=== PATIENT | male | born 1970 | race Caucasian/White ===

== ENCOUNTER 2017-03-02 20:52 | Inpatient (IN) ==
[2017-03-02] MEDS ORDERED: Ondansetron 4 MG/2 ML VIAL IVP PRN (22:53)
[2017-03-02] MEDS ORDERED: Naloxone 0.4 MG/ML INJ IVP PRN (22:53)
[2017-03-02] MEDS ORDERED: Acetaminophen 325 MG TABLET PO PRN (22:53)
[2017-03-02] MEDS ORDERED: Lacri-Lube 3.5 GM TUBE BOTH EYES PRN (23:13)
[2017-03-02] MEDS ORDERED: *HR* Heparin 5,000 UNIT/ML VIAL IVP ONE (23:17)
[2017-03-02] MEDS ORDERED: *HR* Heparin 5,000 UNIT/ML VIAL IVP PRN ×2 (23:17)
--- NOTE | 2017-03-02 23:21 | Internal Med History&Physical ---
Date of Encounter: 03/02/17 Time of Encounter: 23:00 Assessment and Plan (1) Respiratory failure Current visit: Yes Status: Acute Patient consumed multiple substances including benzodiazepines, Neurontin and Suboxone. Patient has a history of depression and schizophrenia. According to mother, the patient locks himself up and his room and does not communicate with the rest of the family. Possible intentional overdose in a suicide attempt. Patient was unable to protect his airway and hence, he was intubated and placed on ventilator. Patient will be admitted to ICU as inpatient status. High risk due to respirator failure requiring mechanical ventilation, non-STEMI which requires further evaluation. He is at risk of lethal arrhythmias. Expected to be in the hospital for at least overnights. Expected discharge disposition is to home. Patient's latest ABG reveals a pH of 7.17, PCO2 80 mmHg, PO2 94. After the ABG, his respiratory rate was increased to 20 and his tidal volume was increased to 600 mL. He currently has a minute ventilation of 12 L/m. IBW-80 kg We will continue current ventilator settings (6 ml/kg IBW). Check stat ABG. Adjust ventilator settings based on ABG results. Pulmonology consult for ventilator management. Continue propofol sedation. Intravenous proton pump inhibitor Total critical care time of 45 min Qualifiers: Chronicity: acute Respiratory failure complication: hypoxia and hypercapnia Qualified Code(s): J96.01 - Acute respiratory failure with hypoxia ; J96.02 - Acute respiratory failure with hypercapnia (2) Suicide attempt by multiple drug overdose Current visit: Yes Status: Acute As mentioned earlier, patient has a history of depression. Likely suicidal overdose of medications. Once the patient is extubated, he will require psychiatric evaluation for possible inpatient psychiatric stay. Qualifiers: Encounter type: initial encounter Qualified Code(s): T50.902A - Poisoning by unspecified drugs, medicaments and biological substances, intentional self- harm, initial encounter (3) GUS (acute kidney injury) Current visit: Yes Status: Acute Mild elevation in renal function. Likely due to dehydration. Continue intravenous fluids. Check renal ultrasound (4) Swelling of right hand Current visit: Yes Status: Acute Swelling of the right upper extremity over the past 4 days. Will obtain ultrasound of the right hand. Check blood cultures to evaluate for possible infection. Patient be placed on antibiotics. If the swelling worsens, will consider CT scan of the right hand tomorrow. (5) Encephalopathy, toxic Current visit: Yes Status: Acute Due to polysubstance overdose. (6) NSTEMI (non-ST elevated myocardial infarction) Current visit: Yes Status: Acute Patient has been complaining of chest pain and shortness of breath over the last 3-4 months according to family. He has ST depressions in inferior leads and elevation in troponin. Patient be placed on heparin drip. He will also be given aspirin, statin. Echocardiogram. Cardiology consult. (7) Diabetes mellitus Current visit: Yes Status: Chronic Continue basal insulin. Sliding scale insulin every 4 hours. Qualifiers: Diabetes mellitus type: type 2 Diabetes mellitus complication status: with neurologic complications Diabetes mellitus complication detail: with polyneuropathy Diabetes mellitus shelter insulin use: with extermination inspector use Qualified Code(s): E11.42 - Type 2 diabetes mellitus with diabetic polyneuropathy; Z79.4 - terminal operations manager (current) use of insulin (8) HTN (hypertension) Current visit: Yes Status: Chronic Currently, patient has borderline low blood pressure. Hold antihypertensive medications. Qualifiers: Hypertension type: essential hypertension Qualified Code(s): I10 - Essential (primary) hypertension (9) Obesity Current visit: No Status: Chronic Qualifiers: Obesity type: due to excess calories Obesity severity: unspecified obesity severity Qualified Code(s): E66.09 - Other obesity due to excess calories Internal Medicine - H&P: HPI Chief complaint: Overdose Admitted From: Hospital to Hospital Transfer Plans for Post Hospital Care: Home History of present illness: Mr. Barker is a 46 year old male who has been transferred from [facility] emergency room. Patient was intubated at the emergency room and transferred to ICU in [facility]. Patient is currently intubated on ventilator and sedated. He is unable to provide any history or review of systems. Patient is accompanied by his family who are able to provide information. According to his mother, patient was apparently at his baseline this morning when she returned from [employer]. She had not seen him for about 2-3 hours later. When the family went back to his room, he was found to be on the floor and not responding. Hence, they called EMS and the patient was transported to [place] emergency department. At [place], the patient was intubated for airway protection due to his mental status. The family states that the patient matter taken up to and 15 tablets of Xanax, Suboxone tablets, Neurontin. They stated the patient had a history of intravenous drug use before he went to correction about 10 years ago. However, the patient has been out of correction for the past 5 years and the family states that he has not been using any intravenous drugs since he came out of correction as he has regular checkups with his foreign service officer. They also report that he used to use marijuana and cocaine in the past before going to correction. They state that he has not been using any illicit substances recently. Apparently, the patient has been having swelling of his right hand over the past 4 days. He thought that he had a bite on his hand. They report that his swelling has been getting worse over the last 4 days with the patient has been reluctant to be checked out by the physicians. They also report that he has had chest pains and shortness of breath over the past 3-4 months. The patient does have a history of diabetes mellitus and uses Lantus at bedtime. The family states that the patient has not been having any fever or chills, cough, wheezing or sputum production recently. Past Med Surg Social Fam HX - Past Medical History Source: old records reviewed, obtained from family Medical history: diabetes, hyperlipidemia, hypertension, kidney stones, other Psychiatric history: depression, schizophrenia - Past Surgical History Surgical History: non-contributory - Social History Smoking Status: Current every day smoker Packs per day: 4 Smokeless Tobacco Status: No Alcohol use: none Drug use: none Current living situation: Home, With Family Activity Level: Independent ambulation Recent Out of Country Travel Within the Last 8 Weeks: No Exposure or Possible Exposure to Illness During Travel: No - Additional Family History Additional family history: Reviewed; not pertinent Internal Medicine - H&P: Meds Amitriptyline [Elavil] 50 mg PO DAILY 04/18/15 [History] Amlodipine Besylate [Norvasc] 10 mg PO DAILY 04/18/15 [History] Benazepril HCl [Lotensin] 20 mg PO DAILY 04/18/15 [History] Gabapentin [Neurontin] 800 mg PO TID 04/18/15 [History] HYDROcodone/Acet 5/325 mg [[place] 5-325 mg] 1 tab PO Q6HR 04/18/15 [History] HYDROcodone/Acet 5/325 mg [[place] 5-325 mg] 2 tab PO Q4H PRN #20 tablet 04/18/15 [Rx] Hydrochlorothiazide 25 mg PO DAILY 04/18/15 [History] Ketorolac [Toradol] 10 mg PO Q6HR 04/18/15 [History] Lamotrigine [Lamictal] 150 tab PO DAILY 04/18/15 [History] Metformin [Glucophage] 500 mg PO BID 04/18/15 [History] Metoprolol [Lopressor] 25 mg PO BID 04/18/15 [History] Oxybutynin [Ditropan] 5 mg PO TID PRN #30 tablet 04/18/15 [Rx] RisperiDONE [RisperDAL] 3 mg PO BID 04/18/15 [History] Tamsulosin [Flomax] 0.4 mg PO DAILY 04/18/15 [History] Allergies No Known Allergies Allergy (Verified 04/18/15 10:56) ROS unobtainable: due to endotracheal tube All Systems PM: A 10-system review of systems was performed and is negative for pertinent findings except as documented above in the HPI. - Constitutional Vitals: Temp Pulse Resp BP Pulse Ox 99.3 F 82 20 90/60 96 03/02/17 22:59 03/02/17 22:59 03/02/17 22:59 03/02/17 22:59 03/02/17 22:59 Exam: Gen.: Lying in bed. Intubated on ventilator. Sedated. Eyes: Pupils equal, round and reactive to light. Extraocular muscles intact. ENT: Moist mucous membranes. No oropharyngeal erythema or discharge. Endotracheal tube at 25 cm. 8 mm ET tube. Orogastric tube present. Chest: Bilateral diffuse wheezing and rhonchi present. CVS: First and second heart sounds present. No murmurs, rubs or gallops. Distant heart sounds. Abdomen: Soft, nontender, obese. Bowel sounds present. Skin: No decubitus ulcers appreciated. SALES SUPPORT ASSOCIATE: Unable to assess due to being on the ventilator and being sedated. Psychiatric: Intubated and sedated with propofol on a ventilator. Lymphatic system: No lymphadenopathy appreciated Musculoskeletal: Edema and erythema over the right hand. Internal Med - H&P Results - ABG Interpretation Interpretation: ABG interpreted by me Interpretation: abnormal, respiratory acidosis - EKG Data -: EKG Interpreted by Myself EKG shows normal: sinus rhythm, ST-T waves (ST depressions in leads 2, 3 and aVF ) Rate: normal - EKG Data Prior EKG available for review: no - Diagnostic Studies Chest x-ray Status: image reviewed by me (ET tube in satisfactory position; Low lung volumes ; Probable left airspace disease)
[2017-03-02] MEDS ORDERED: D5% in Water 1,000 ML IVC PRN (23:30)
[2017-03-02] MEDS ORDERED: Dextrose Gel 15 GM PO PRN ×2 (23:30)
[2017-03-02] MEDS ORDERED: *HR* Dextrose 50 % in Water (Syg) 50 ML SYRINGE IVP PRN (23:30)
[2017-03-02] MEDS ORDERED: Aspirin 325 MG TABLET PO ONE (23:34)
[2017-03-02] MEDS: 0.9 % Sodium Chloride 1,000 ML IVC SCH (23:51)
[2017-03-02] MEDS: Ipratropium/Albuterol Neb 3 ML IH SCH (23:54)
[2017-03-02] MEDS: Insulin LISPRO 300 UNITS/3 ML VIAL SQ SCH (23:58)
[2017-03-02] MEDS: Lacri-Lube 3.5 GM TUBE BOTH EYES SCH (23:58)
[2017-03-02 23:59] LABS: ABG Base Excess 1.4 mEq/L (-2.0 to 3.0); ABG HCO3 31.1 mEQ/L (21-27); ABG Oxygen Saturation 78 % (95-98); ABG PH 7.22 pH Units (7.32-7.45); ABG PO2 51 mmHg (85-104); ABG TCO2 33.4 mEq/L (20-26); Blood Gas FiO2 100 %
[2017-03-03] LABS: ABG PCO2 76 mmHg (35-45)
[2017-03-03 00:13] LABS: Hematocrit 36.3 % (37.5-50.1); Hemoglobin 11.1 g/dL (12.9-16.9); Mean Corpuscular HGB Conc 30.6 g/dL (31.6-35.5); Mean Corpuscular Hemoglobin 20.7 pg (28.0-33.3); Mean Corpuscular Volume 67.9 fL (83.0-100.0); Platelet Count 199 K/mcL (140-400); Red Blood Count 5.35 M/mcL (4.19-5.50); Red Cell Distribution Width 17.3 % (11.5-14.5)
[2017-03-03] MEDS: Ampicillin/Sulbactam 1,500 MG in 0.9 % Sodium Chloride Mini Bag 100 ML IVPB SCH ×4 (00:16→18:33)
[2017-03-03 00:19] LABS: INR 1.2; Prothrombin Time 13.1 Seconds (9.4-12.1)
[2017-03-03 00:22] LABS: Activated Partial Thrombo Time 29.8 Seconds (26.0-36.0)
[2017-03-03 00:25] LABS: Hemoglobin A1C 8.7 %
[2017-03-03 00:27] LABS: ABG Base Excess 3.5 mEq/L (-2.0 to 3.0); ABG HCO3 30.6 mEQ/L (21-27); ABG Oxygen Saturation 96 % (95-98); ABG PCO2 58 mmHg (35-45); ABG PH 7.33 pH Units (7.32-7.45); ABG PO2 84 mmHg (85-104); ABG TCO2 32.4 mEq/L (20-26)
[2017-03-03 00:28] LABS: Blood Gas FiO2 100 %
[2017-03-03] MEDS: Heparin 25,000 UNIT/500 ML D5W 25,000 UNIT/500 ML MLS IVC SCH ×2 (00:48→13:03)
[2017-03-03] MEDS: Ipratropium/Albuterol Neb 3 ML IH SCH ×6 (04:04→23:29)
[2017-03-03] MEDS: Lacri-Lube 3.5 GM TUBE BOTH EYES SCH ×5 (04:50→21:25)
[2017-03-03 05:24] LABS: ABG Base Excess 5.9 mEq/L (-2.0 to 3.0); ABG HCO3 32.8 mEQ/L (21-27); ABG Oxygen Saturation 93 % (95-98); ABG PCO2 58 mmHg (35-45); ABG PH 7.36 pH Units (7.32-7.45); ABG PO2 68 mmHg (85-104); ABG TCO2 34.6 mEq/L (20-26); Blood Gas FiO2 80 %
[2017-03-03] MEDS: Insulin LISPRO 300 UNITS/3 ML VIAL SQ SCH ×3 (06:08→18:38)
[2017-03-03] MEDS: Aspirin Enteric Coated 81 MG Tablet PO SCH (07:39)
[2017-03-03 07:57] LABS: Basophils % 0.1 %; Eosinophils % 0.2 %; Hematocrit 35.7 % (37.5-50.1); Hemoglobin 11.4 g/dL (12.9-16.9); Immature Granulocytes % 0.7 % (0-4); Lymphocytes % 23.1 %; Mean Corpuscular HGB Conc 31.9 g/dL (31.6-35.5); Mean Corpuscular Hemoglobin 21.3 pg (28.0-33.3); Mean Corpuscular Volume 66.9 fL (83.0-100.0); Mean Platelet Volume 10.1 fL (9.4-12.4); Monocytes # 0.8 K/mcL (0.0-1.3); Monocytes % 9.4 %; Neutrophils # 5.9 K/mcL (1.6-8.9); Platelet Count 194 K/mcL (140-400); Red Blood Count 5.34 M/mcL (4.19-5.50); Red Cell Distribution Width 18.1 % (11.5-14.5); Segmented Neutrophils % 66.5 %
[2017-03-03 07:59] LABS: Alanine Aminotransferase 33 Units/L (0-55); Albumin 3.2 g/dL (3.5-5.0); Alkaline Phosphatase 84 Units/L (38-126); Aspartate Amino Transferase 37 Units/L (5-34); BUN/Creatinine Ratio 15 (6-26); Bilirubin,Total 0.4 mg/dL (0.2-1.2); Blood Urea Nitrogen 13 mg/dL (8-26); Calcium 8.7 mg/dL (8.6-10.8); Carbon Dioxide 27 mEq/L (19-29); Chloride 100 mEq/L (98-109); Globulin 3.3 g/dL (2.4-3.5); Glucose 136 mg/dL (70-99); Osmolality,Calculated 286 (280-300); Potassium 3.9 mEq/L (3.5-4.5); Sodium 137 mEq/L (136-145); Total Protein 6.5 g/dL (6.0-8.3); eGFR For African Americans > 60 (> 60); eGFR For Non-African Americans > 60 (> 60)
[2017-03-03] MEDS: Chlorhexidine Rinse 15 ML MOUTHWASH MM SCH ×2 (08:19→21:25)
[2017-03-03] MEDS: Pantoprazole 40 MG VIAL IVPB SCH (08:19)
[2017-03-03] MEDS: 0.9 % Sodium Chloride 1,000 ML IVC SCH ×2 (08:19→18:32)
[2017-03-03 08:29] LABS: Anisocytosis 1+ (Not Present); Microcytosis Present (Not Present); Platelet Estimate Normal (Normal)
[2017-03-03] MEDS: FentaNYL (PF) 1,000 MCG in 0.9 % Sodium Chloride 80 ML IVC SCH ×3 (08:57→21:28)
--- NOTE | 2017-03-03 10:15 | Cardiology Consult Note ---
Date of Encounter: 03/03/17 Time of Encounter: 10:15 Assessment and Plan (1) Suicide attempt by multiple drug overdose Current Visit: Yes Status: Acute Per Cardiology: Previous records reviewed: "Patient consumed multiple substances including benzodiazepines, Neurontin and Suboxone. Patient has a history of depression and schizophrenia. According to mother, the patient locks himself up and his room and does not communicate with the rest of the family. Possible intentional overdose in a suicide attempt. Patient was unable to protect his airway and hence, he was intubated and placed on ventilator". Management per primary service. Qualifiers: Encounter type: initial encounter Qualified Code(s): T50.902A - Poisoning by unspecified drugs, medicaments and biological substances, intentional self- harm, initial encounter (2) NSTEMI (non-ST elevated myocardial infarction) Current Visit: Yes Status: Acute Per Cardiology: Peak troponin 2.97. Echo showed EF 60%, normal diastolic fxn, normal RV structure and fxn, no significant valvular dysfxn, NSWMA. On asa, Hep gtt, plavix, statin. Plavix loaded by primary service. Will add BB-- HR 100's and SBP 120's to 130's. Consider further ischemic eval. once recovers from acute event if deemed clinically appropriate. Discussed and reviewed with Dr. Abrams. Cardiac rehab consult not warranted at this time. (3) Respiratory failure Current Visit: Yes Status: Acute Per Cardiology: Intubated. Management per pulm. Qualifiers: Chronicity: acute Respiratory failure complication: hypoxia and hypercapnia Qualified Code(s): J96.01 - Acute respiratory failure with hypoxia ; J96.02 - Acute respiratory failure with hypercapnia Discussion w patient/family: Thank you for involving us in the care of your patient. Please call with any questions. History of Present Illness Consult date: 03/03/17 Requesting physician: Kendall To Consult reason: Elevated Trop in setting of OD History of present illness: Mr. Barker is a 46 year old male with a relevant past medical history according to records of hypertension, hyperlipidemia, diabetes mellitus type 2, nicotine abuse, schizophrenia, and depression. Cardiology consult for elevated troponin in setting of suicide attempt with overdose. Patient currently intubated and sedated with no family currently present at bedside. Unable to obtain history of present illness. Past Med Surg Social Fam HX - Past Medical History Source: unable to obtain, old records reviewed Medical history: diabetes, hyperlipidemia, hypertension, kidney stones, other Psychiatric history: depression, schizophrenia - Past Surgical History Surgical History: non-contributory - Social History Smoking Status: Current every day smoker Packs per day: 4 Smokeless Tobacco Status: No Alcohol use: none Drug use: none - Family History Father Living Status: Cause of : [place] Hx Family Cardiac Disorders: Yes Medications and Allergies Amitriptyline [Elavil] 50 mg PO DAILY 04/18/15 [History] Amlodipine Besylate [Norvasc] 10 mg PO DAILY 04/18/15 [History] Benazepril HCl [Lotensin] 20 mg PO DAILY 04/18/15 [History] Gabapentin [Neurontin] 800 mg PO TID 04/18/15 [History] HYDROcodone/Acet 5/325 mg [[place] 5-325 mg] 1 tab PO Q6HR 04/18/15 [History] HYDROcodone/Acet 5/325 mg [[place] 5-325 mg] 2 tab PO Q4H PRN #20 tablet 04/18/15 [Rx] Hydrochlorothiazide 25 mg PO DAILY 04/18/15 [History] Ketorolac [Toradol] 10 mg PO Q6HR 04/18/15 [History] Lamotrigine [Lamictal] 150 tab PO DAILY 04/18/15 [History] Metformin [Glucophage] 500 mg PO BID 04/18/15 [History] Metoprolol [Lopressor] 25 mg PO BID 04/18/15 [History] Oxybutynin [Ditropan] 5 mg PO TID PRN #30 tablet 04/18/15 [Rx] RisperiDONE [RisperDAL] 3 mg PO BID 04/18/15 [History] Tamsulosin [Flomax] 0.4 mg PO DAILY 04/18/15 [History] Allergies No Known Allergies Allergy (Verified 04/18/15 10:56) ROS unobtainable: due to endotracheal tube, due to mental status, other ( sedated on fentanyl and propofol, intubated, no family at bedside) All Systems Review: A 10-system review of systems was performed and is negative for pertinent findings except as documented above in the HPI. - Cardiovascular Cardiovascular: as per HPI Physical Examination Vital Signs, Last 4 Hours Temp Pulse Resp BP Pulse Ox 03/03/17 10:00 98 20 120/65 93 03/03/17 09:05 21 121/73 92 03/03/17 09:00 101 20 121/73 92 03/03/17 08:00 94 23 120/67 89 03/03/17 07:55 99.9 F H 03/03/17 07:10 20 108/64 93 03/03/17 07:00 94 20 108/64 93 03/03/17 06:29 20 112/69 94 HEENT: Atraumatic, Normocephaly Cardiac: Reg Rate and Rhythm, Normal S1 and S2, No Murmur Lungs: Normal Breath Sounds, No Wheeze, Rales, Rhonchi Neuro: Other (Sedated) Abdomen: Soft Skin: No rashes noted on visualized skin Extremities: No Edema, Normal Pulses Results 03/03/17 07:37 03/03/17 07:37 Lab Results Laboratory Tests 03/02/17 03/03/17 03/03/17 19:50 00:09 00:09 INR 1.2 Troponin I 0.11 H* 0.65 H* 03/03/17 07:37 INR Troponin I 2.97 H* ITS Impressions Chest X-Ray 03/02/17 22:55 IMPRESSION: 1. Endotracheal tube in good position. 2. Increased perihilar opacities and vascular congestion suggestive of pulmonary edema. 3. Persistent retrocardiac opacity, which may represent atelectasis or consolidation with possible small effusion. D/ / 03/03/2017 07:22:32 Jonas Riddle MD / taylor Interpreting Provider: Jonas Riddle MD Intake & Output 02/28/17 03/01/17 03/02/17 03/03/17 23:59 23:59 23:59 23:59 Intake Total 0 / 0 1656 / 1656 Output Total 150 / 150 1025 / 1025 Balance -150 / -150 631 / 631 Weight 144.1 kg 142.8 kg Active Medications Acetaminophen (Tylenol) 650 mg PO Q6HR PRN PRN Reason: fever GREATER than 101.2 F Stop: 09/01/17 22:54 Albuterol/Ipratropium (Duoneb) 3 ml IH [id number] WAQAR PRN Reason: Protocol Stop: 09/02/17 00:01 Last Admin: 03/03/17 07:09 Dose: 3 ml Artificial Tears (Lacri-Lube) 1 appl BOTH EYES Q4HR WAQAR PRN Reason: Protocol Stop: 09/02/17 00:01 Last Admin: 03/03/17 08:19 Dose: 1 appl Artificial Tears (Lacri-Lube) 1 appl BOTH EYES Q2HR PRN; Protocol PRN Reason: Dry Eyes Stop: 09/01/17 23:14 Aspirin (Aspirin Ec) 81 mg PO DAILY WAQAR Stop: 09/02/17 09:01 Last Admin: 03/03/17 07:39 Dose: Not Given Atorvastatin Calcium (Lipitor) 80 mg PO HS WAQAR Stop: 09/01/17 23:46 Last Admin: 03/03/17 01:09 Dose: 80 mg Chlorhexidine Gluconate (Chlorhexidine Rinse) 15 ml MM BID WAQAR Stop: 09/02/17 09:01 Last Admin: 03/03/17 08:19 Dose: 15 ml Clopidogrel Bisulfate (Plavix) 75 mg PO DAILY WAQAR Stop: 09/02/17 09:01 Last Admin: 03/03/17 08:19 Dose: 75 mg Dextrose/Water (Dextrose 50% (Syg)) 25 ml IVP AD PRN PRN Reason: Hypoglycemia Stop: 09/01/17 23:31 Glucagon (Glucagen) 1 mg IM ONCE PRN PRN Reason: Hypoglycemia Stop: 09/01/17 23:31 Glucose (Gluctose) 15 gm PO ONCE PRN PRN Reason: Hypoglycemia Stop: 09/01/17 23:31 Glucose (Gluctose) 30 gm PO ONCE PRN PRN Reason: Hypoglycemia Stop: 09/01/17 23:31 Heparin Sodium (Porcine) (Heparin) 4,000 unit IVP Q6HR PRN PRN Reason: SEE COMMENTS Stop: 09/01/17 23:18 Heparin Sodium (Porcine) (Heparin) 2,000 unit IVP Q6H PRN PRN Reason: SEE COMMENTS Stop: 09/01/17 23:18 Sodium Chloride (0.9 % Sodium Chloride) 1,000 mls @ 100 mls/hr IVC .Q10H WAQAR Stop: 09/01/17 23:01 Last Admin: 03/03/17 08:19 Dose: 100 mls/hr Propofol (Diprivan) 1,000 mg in 100 mls @ 0 mls/hr IVC .Q0M WAQAR; Per Protocol PRN Reason: Protocol Stop: 09/01/17 23:16 Last Admin: 03/03/17 08:56 Dose: 60 mcg/kg/hr, 0.865 mls/hr Heparin Sodium/Dextrose (Heparin 25,000 Unit/500 Ml D5w) 25,000 unit in 500 mls @ 34.584 mls/hr IVC .[id number] WAQAR; 12 UNIT/KG/HR PRN Reason: Protocol Stop: 09/01/17 23:31 Last Titration: 03/03/17 08:45 Dose: 15.44 unit/kg/hr, 44.5 mls/hr Dextrose (Dextrose 5%) 1,000 mls @ 100 mls/hr IVC .Q10H PRN PRN Reason: HYPOGLYCEMIA Stop: 09/01/17 23:31 Ampicillin Sodium/Sulbactam Sodium 1,500 mg/ Sodium Chloride 100 mls @ 200 mls/ hr IVPB Q6HR WAQAR Stop: 09/02/17 00:01 Last Infusion: 03/03/17 06:39 Dose: Infused Fentanyl Citrate 1,000 mcg/ (Sodium Chloride) 100 mls @ 5 mls/hr IVC CONT WAQAR; 50 MCG/HR PRN Reason: Protocol Stop: 09/02/17 08:16 Last Admin: 03/03/17 08:57 Dose: 50 mcg/hr, 5 mls/hr Insulin Human Lispro (Humalog) 0 units SQ Q6HR WAQAR PRN Reason: Protocol Stop: 09/02/17 00:01 Last Admin: 03/03/17 06:08 Dose: 4 units Naloxone HCl (Narcan) 0.4 mg IVP Q2MIN PRN PRN Reason: Opioid Reversal Stop: 09/01/17 22:54 Ondansetron HCl (Zofran) 4 mg IVP Q6HR PRN; Protocol PRN Reason: Nausea And Vomiting Stop: 09/01/17 22:54 Pantoprazole Sodium (Protonix) 40 mg IVPB DAILY [facility] Stop: 09/02/17 09:01 Last Admin: 03/03/17 08:19 Dose: 40 mg - Imaging and Cardiology Chest Xray: report reviewed Echo: report reviewed - EKG Interpretation EKG results cardiology: personally reviewed, normal ECG, sinus rhythm, other ( ST 100's on tele) Consult Discharge Plan - Plan Referrals: Molina Dewey DO [Primary Care Provider] -
[2017-03-03] MEDS ORDERED: Perflutren Lipid Microsphere 1.3 ML in 0.9 % Sodium Chloride 8.7 ML IVP ONE (10:44)
--- NOTE | 2017-03-03 14:03 | Pulmonology Progress Note ---
Date of Encounter: 03/03/17 Time of Encounter: 08:45 Assessment and Plan (1) Overdose Current Visit: Yes Status: Acute Neuro: Acute overdose with unknown SI. Associated encephalopathy. Highly agitated and requiring fairly large doses of fentanyl and propofol for sedation. Likely being comfort care by history of schizophrenia. Continue with sedation and planned wakeup is able tomorrow. Agitation could [place] extubation. Cardiovascular: NSTEMI. Continue antiplatelet, anticoagulation, and rate control. Cardiology has been consult. Pulmonary: Acute respiratory failure most likely due to acuity of agitation. Suboptimal chest x-ray difficult to interpret for airspace abnormalities. However, there are no indicators of pneumonia (i.e. leukocytosis, fever, purulent sputum). Patient has shown some ventilator difficulty but this may be owing to parenchymal derecruitment during periods agitation. Nephro: Discordant data between blood gas and serum bicarbonate. Possible that ABG data was skewed by rapid changes in CO2 due to variations in rest for status with anxiety/agitation. No AK. GI: No significant LAE abnormalities. Will not attempt enteral feeds agitation. ID: No evidence of acute infection. HO: Slight anemia. No indication for transfusion. Endocrine: Hyperglycemia. If blood glucose rises any further, plan to initiate sliding scale. MSK: Patient currently in 4. restraints. No other acute issues. Disposition: Remain in ICU. Critical care time 45 minutes. Qualifiers: Encounter type: initial encounter Injury intent: intentional self-harm Qualified Code(s): T50.902A - Poisoning by unspecified drugs, medicaments and biological substances, intentional self-harm, initial encounter (2) Respiratory failure Current Visit: Yes Status: Acute Qualifiers: Chronicity: acute Respiratory failure complication: hypoxia and hypercapnia Qualified Code(s): J96.01 - Acute respiratory failure with hypoxia ; J96.02 - Acute respiratory failure with hypercapnia (3) Encephalopathy, toxic Current Visit: Yes Status: Acute (4) NSTEMI (non-ST elevated myocardial infarction) Current Visit: Yes Status: Acute Subjective Principal diagnosis: Overdose Interval history: 46-year-old male admitted last night for overdose of multiple substances. Possible suicidal ideation but this remains unclear. Patient was intubated at admission and has required significant doses of sedation. Was also noted to have elevated troponin during his acute event. Since admission patient has shown no changes mental status and has been unable to convey any complaint. Objective PUL Vital signs: Last Vital Signs Temp 99.3 F 03/03/17 11:48 Pulse 99 03/03/17 13:00 Resp 20 03/03/17 13:02 BP 117/68 03/03/17 13:02 Pulse Ox 94 03/03/17 13:02 General appearance: agitated Neck: supple Auscultation: bilateral: rhonchi Cardiovascular: other (Tachycardia with regular rhythm) Gastrointestinal: soft, non-distended Integumentary: normal Extremities: no cyanosis, no edema, no clubbing unable to assess due to mental status anxious Ventilator Settings Ventilator Settings: Ventilator Settings, Last 8 Hours Ventilator Mode VC+ Ventilator Mode VC+ Ventilator Mode VC+ Ventilator Mode VC+ Ventilator Mode VC+ Ventilator Mode VC+ Ventilator Mode VC+ Ventilator Mode VC+ Ventilator Mode VC+ Ventilator Mode VC+ Ventilator Mode VC+ Ventilator Mode VC+ Ventilator Tidal Volume 600 Setting Ventilator Tidal Volume 600 Setting Ventilator Tidal Volume 600 Setting Ventilator Tidal Volume 600 Setting Ventilator Tidal Volume 600 Setting Ventilator Tidal Volume 600 Setting Ventilator Tidal Volume 600 Setting Ventilator Tidal Volume 600 Setting Ventilator Tidal Volume 600 Setting Ventilator Tidal Volume 600 Setting Ventilator Tidal Volume 600 Setting Ventilator Tidal Volume 600 Setting Ventilator Tidal Volume 600 Setting Ventilator Respiratory Rate 20 Setting Ventilator Respiratory Rate 20 Setting Ventilator Respiratory Rate 20 Setting Ventilator Respiratory Rate 20 Setting Ventilator Respiratory Rate 20 Setting Ventilator Respiratory Rate 20 Setting Ventilator Respiratory Rate 20 Setting Ventilator Respiratory Rate 20 Setting Ventilator Respiratory Rate 20 Setting Ventilator Respiratory Rate 20 Setting Ventilator Respiratory Rate 20 Setting Ventilator Respiratory Rate 20 Setting Ventilator Respiratory Rate 20 Setting Actual Respiratory Rate 20 Actual Respiratory Rate 20 Actual Respiratory Rate 23 Actual Respiratory Rate 20 Actual Respiratory Rate 21 Actual Respiratory Rate 20 Actual Respiratory Rate 20 Actual Respiratory Rate 20 Actual Respiratory Rate 23 Actual Respiratory Rate 21 Actual Respiratory Rate 20 Actual Respiratory Rate 20 Actual Respiratory Rate 20 Positive End Expiratory 10 Pressure Positive End Expiratory 10 Pressure Positive End Expiratory 10 Pressure Positive End Expiratory 10 Pressure Positive End Expiratory 10 Pressure Positive End Expiratory 10 Pressure Positive End Expiratory 10 Pressure Positive End Expiratory 10 Pressure Positive End Expiratory 10 Pressure Positive End Expiratory 10 Pressure Positive End Expiratory 5 Pressure Positive End Expiratory 5 Pressure Positive End Expiratory 5 Pressure Peak Inspiratory Airway 24 Pressure Peak Inspiratory Airway 27 Pressure Peak Inspiratory Airway 16 Pressure Peak Inspiratory Airway 29 Pressure Peak Inspiratory Airway 29 Pressure Peak Inspiratory Airway 30 Pressure Peak Inspiratory Airway 24 Pressure Peak Inspiratory Airway 26 Pressure Peak Inspiratory Airway 27 Pressure Peak Inspiratory Airway 27 Pressure Peak Inspiratory Airway 31 Pressure Peak Inspiratory Airway 29 Pressure Peak Inspiratory Airway 29 Pressure Results - Laboratory Findings CBC and BMP: 03/03/17 07:37 03/03/17 07:37 ABG ABG pH 7.36 pH Units (7.32-7.45) 03/03/17 05:04 ABG pCO2 58 mmHg (35-45) H 03/03/17 05:04 ABG pO2 68 mmHg (85-104) L 03/03/17 05:04 ABG O2 Saturation 93 % (95-98) L 03/03/17 05:04 PT/INR, D-dimer PT 13.1 Seconds (9.4-12.1) H 03/03/17 00:09 Abnormal lab findings: Abnormal lab results Hgb 11.4 g/dL (12.9-16.9) L 03/03/17 07:37 Hct 35.7 % (37.5-50.1) L 03/03/17 07:37 MCV 66.9 fL (83.0-100.0) L 03/03/17 07:37 MCH 21.3 pg (28.0-33.3) L 03/03/17 07:37 RDW 18.1 % (11.5-14.5) H 03/03/17 07:37 Anisocytosis 1+ (Not Present) A 03/03/17 07:37 Microcytosis Present (Not Present) A 03/03/17 07:37 PT 13.1 Seconds (9.4-12.1) H 03/03/17 00:09 ABG pCO2 58 mmHg (35-45) H 03/03/17 05:04 ABG pO2 68 mmHg (85-104) L 03/03/17 05:04 ABG HCO3 32.8 mEQ/L (21-27) H 03/03/17 05:04 ABG Total CO2 34.6 mEq/L (20-26) H 03/03/17 05:04 ABG O2 Saturation 93 % (95-98) L 03/03/17 05:04 ABG Base Excess 5.9 mEq/L (-2.0 to 3.0) H 03/03/17 05:04 Glucose 136 mg/dL (70-99) H 03/03/17 07:37 POC Glucose 176 (58-89) H 03/03/17 11:16 Hemoglobin A1c 8.7 % (-5.6) H 03/03/17 00:09 AST 37 Units/L (5-34) H 03/03/17 07:37 Troponin I 2.97 ng/mL (0-0.03) H* 03/03/17 07:37 Albumin 3.2 g/dL (3.5-5.0) L 03/03/17 07:37 Albumin/Globulin Ratio 1.0 (1.1-2.2) L 03/03/17 07:37 - Microbiology Findings Microbiology Findings: Microbiology, Last 48 Hours 03/02/17 00:31 Legionella Antigen - Final Urine,Catheterized Streptococcus pneumoniae Antigen (M - Final - Clinical Findings Intake & Output: Intake & Output 03/02/17 03/03/17 03/03/17 23:59 07:59 15:59 Intake Total 0 / 0 300 / 300 1943 / 1943 Output Total 150 / 150 1025 / 1025 800 / 800 Balance -150 / -150 -725 / -725 1143 / 1143 Weight 144.1 kg 144.1 kg 142.8 kg Consult Discharge Plan - Plan Referrals: Molina Dewey DO [Primary Care Provider] -
--- NOTE | 2017-03-03 14:51 | Electrocardiograph Report ---
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
[2017-03-04] MEDS: Heparin 25,000 UNIT/500 ML D5W 25,000 UNIT/500 ML MLS IVC SCH (00:01)
[2017-03-04] MEDS: Lacri-Lube 3.5 GM TUBE BOTH EYES SCH ×7 (00:43→23:45)
[2017-03-04] MEDS: Ampicillin/Sulbactam 1,500 MG in 0.9 % Sodium Chloride Mini Bag 100 ML IVPB SCH ×2 (00:44→05:05)
[2017-03-04] MEDS: Insulin LISPRO 300 UNITS/3 ML VIAL SQ SCH ×5 (00:44→23:48)
[2017-03-04] MEDS: FentaNYL (PF) 1,000 MCG in 0.9 % Sodium Chloride 80 ML IVC SCH ×5 (01:15→19:54)
[2017-03-04] MEDS: Ipratropium/Albuterol Neb 3 ML IH SCH ×6 (03:45→23:55)
[2017-03-04] MEDS: 0.9 % Sodium Chloride 1,000 ML IVC SCH ×2 (04:30→15:01)
[2017-03-04 05:06] LABS: ABG Base Excess 8.1 mEq/L (-2.0 to 3.0); ABG HCO3 34.9 mEQ/L (21-27); ABG Oxygen Saturation 91 % (95-98); ABG PCO2 59 mmHg (35-45); ABG PH 7.38 pH Units (7.32-7.45); ABG PO2 63 mmHg (85-104); ABG TCO2 36.7 mEq/L (20-26); Blood Gas FiO2 60 %
[2017-03-04 06:54] LABS: Activated Partial Thrombo Time 112.5 Seconds (26.0-36.0)
[2017-03-04 07:02] LABS: Basophils % 0.3 %; Eosinophils # 0.1 K/mcL (0.0-0.6); Hematocrit 35.1 % (37.5-50.1); Hemoglobin 10.9 g/dL (12.9-16.9); Immature Granulocytes % 0.5 % (0-4); Lymphocytes # 1.8 K/mcL (0.6-4.6); Lymphocytes % 30.8 %; Mean Corpuscular HGB Conc 31.1 g/dL (31.6-35.5); Mean Corpuscular Hemoglobin 21.2 pg (28.0-33.3); Mean Corpuscular Volume 68.3 fL (83.0-100.0); Mean Platelet Volume 9.7 fL (9.4-12.4); Monocytes # 0.6 K/mcL (0.0-1.3); Monocytes % 10.1 %; Neutrophils # 3.4 K/mcL (1.6-8.9); Platelet Count 157 K/mcL (140-400); Red Blood Count 5.14 M/mcL (4.19-5.50); Red Cell Distribution Width 17.8 % (11.5-14.5); Segmented Neutrophils % 57.3 %
[2017-03-04 07:10] LABS: Alanine Aminotransferase 28 Units/L (0-55); Albumin 2.8 g/dL (3.5-5.0); Albumin/Globulin Ratio 0.9 (1.1-2.2); Alkaline Phosphatase 80 Units/L (38-126); Aspartate Amino Transferase 32 Units/L (5-34); BUN/Creatinine Ratio 13 (6-26); Bilirubin,Total 0.4 mg/dL (0.2-1.2); Blood Urea Nitrogen 8 mg/dL (8-26); Calcium 8.4 mg/dL (8.6-10.8); Carbon Dioxide 26 mEq/L (19-29); Chloride 103 mEq/L (98-109); Globulin 3.2 g/dL (2.4-3.5); Glucose 173 mg/dL (70-99); Osmolality,Calculated 288 (280-300); Potassium 3.9 mEq/L (3.5-4.5); Sodium 138 mEq/L (136-145); eGFR For African Americans > 60 (> 60); eGFR For Non-African Americans > 60 (> 60)
[2017-03-04 07:12] LABS: Heparin anti-factor XA UFH 0.79 IU/mL (0.30-0.70)
[2017-03-04 07:30] LABS: Anisocytosis 1+ (Not Present); Microcytosis Present (Not Present); Platelet Estimate Slight Decrease (Normal)
--- NOTE | 2017-03-04 07:47 | Pulmonology Progress Note ---
Date of Encounter: 03/04/17 Time of Encounter: 07:45 Assessment and Plan (1) Overdose Current Visit: Yes Status: Acute MANAGEMENT DEVELOPMENT SPECIALIST: Acute overdose with encephalopathy. Patient now sedated and on ventilator with Propofol and Fentanyl. Patient requiring large doses sedation due to agitation. Will start Klonapin 1mg TID and Seroquel 100mg Q8H. Unknown Suicidal Ideation. Patient does have underlying history of schizophrenia. Continue to hold Lamictal, Respiridol, Perphenazine, Hydroxyzine, Xanax. Cardiovasuclar: NSTEMI, continue heparin, antiplatelet, rate control. ECHO demonstrated LVEF 65-70%. Cardiology is following patient. He will likely need ischemic evaluation in the future. Pulmonary: Acute respiratory failure secondary to overdose of multiple substances including benzodiazepines, neurontin, suboxone. Saturating 97-98% on Ventilator Vt 550, PEEP 10, FIO2 60%, RR 20. Will discontinue Unasyn given that there are no clinical symptoms of pneumonia. Nephro: Normal SCr, 3L UOP in last 24 hours. GI/Electrolytes/Nutrition: Will start tube feeds. GI prophylaxis: IV protonix Infectious disease: No evidence of acute infection. Heme/Onc: Anemia with Hb of 10.9. No need for transfusion. Endocrine: Hyperglycemia. Continue accuchecks every 6 hours. Continue low-dose ss insulin coverage. Musculoskeletal: Currently in upper extremity restraints while on ventilator. Lines: Lines checked and no evidence of infection reaves, two peripherals to left arm Skin: Skin precautions per nursing protocol. Right hand with evidence of edema/ induration. Right upper extremity doppler negative for DVT/VTE. Continue to monitor skin for acute changes. DVT prophylaxis: Heparin gtt Code Status: FULL CODE Qualifiers: Encounter type: initial encounter Injury intent: undetermined intent Qualified Code(s): T50.904A - Poisoning by unspecified drugs, medicaments and biological substances, undetermined, initial encounter (2) Respiratory failure Current Visit: Yes Status: Acute Qualifiers: Chronicity: acute Respiratory failure complication: hypoxia and hypercapnia Qualified Code(s): J96.01 - Acute respiratory failure with hypoxia ; J96.02 - Acute respiratory failure with hypercapnia (3) NSTEMI (non-ST elevated myocardial infarction) Current Visit: Yes Status: Acute (4) Encephalopathy, toxic Current Visit: Yes Status: Acute (5) Diabetes mellitus Current Visit: Yes Status: Chronic Qualifiers: Diabetes mellitus type: type 2 Diabetes mellitus complication status: with neurologic complications Diabetes mellitus complication detail: with polyneuropathy Diabetes mellitus senior living insulin use: with silver chaser use Qualified Code(s): E11.42 - Type 2 diabetes mellitus with diabetic polyneuropathy; Z79.4 - mechanical meter tester (current) use of insulin (6) Swelling of right hand Current Visit: Yes Status: Acute (7) Schizophrenia Current Visit: Yes Status: Acute Qualifiers: Schizophrenia type: unspecified Qualified Code(s): F20.9 - Schizophrenia, unspecified (8) DVT prophylaxis Current Visit: Yes Status: Acute Subjective Principal diagnosis: Overdose Interval history: Per nurse report, patient becomes very agitated with small amounts of stimulation. Sedated on Popofol 60 mcg/kg/min and Fentanyl 200 mcg/hr. Objective PUL Vital signs: Last Vital Signs Temp 97.4 F L 03/04/17 07:22 Pulse 75 03/04/17 06:00 Resp 20 03/04/17 06:00 BP 106/63 03/04/17 06:00 Pulse Ox 97 03/04/17 06:00 General appearance: other (sedated) Eyes: other (eye opens to commands) ENT: oropharynx moist Neck: supple Effort: normal Auscultation: bilateral: rhonchi Cardiovascular: regular rate and rhythm Gastrointestinal: hypoactive bowel sounds, other (firm, distended) Integumentary: other (multiple scabs) Extremities: edema (1+ pitting edema and firmness to right hand (nurse reports this is the hand that patient was shooting suboxone)), other (1+ pitting edema to bilateral lower legs to the level of the knee) Musculoskeletal: no deformities unable to assess due to mental status other (sedated and ventilated) Ventilator Settings Ventilator Settings: Ventilator Settings, Last 8 Hours Ventilator Mode VC+ Ventilator Mode VC+ Ventilator Mode VC+ Ventilator Mode VC+ Ventilator Mode VC+ Ventilator Mode VC+ Ventilator Mode VC+ Ventilator Mode VC+ Ventilator Mode VC+ Ventilator Mode VC+ Ventilator Mode VC+ Ventilator Tidal Volume 550 Setting Ventilator Tidal Volume 550 Setting Ventilator Tidal Volume 550 Setting Ventilator Tidal Volume 550 Setting Ventilator Tidal Volume 550 Setting Ventilator Tidal Volume 550 Setting Ventilator Tidal Volume 550 Setting Ventilator Tidal Volume 550 Setting Ventilator Tidal Volume 550 Setting Ventilator Tidal Volume 550 Setting Ventilator Tidal Volume 550 Setting Ventilator Respiratory Rate 20 Setting Ventilator Respiratory Rate 20 Setting Ventilator Respiratory Rate 20 Setting Ventilator Respiratory Rate 20 Setting Ventilator Respiratory Rate 20 Setting Ventilator Respiratory Rate 20 Setting Ventilator Respiratory Rate 20 Setting Ventilator Respiratory Rate 20 Setting Ventilator Respiratory Rate 20 Setting Ventilator Respiratory Rate 20 Setting Ventilator Respiratory Rate 20 Setting Actual Respiratory Rate 20 Actual Respiratory Rate 20 Actual Respiratory Rate 20 Actual Respiratory Rate 20 Actual Respiratory Rate 20 Actual Respiratory Rate 20 Actual Respiratory Rate 20 Actual Respiratory Rate 21 Actual Respiratory Rate 20 Actual Respiratory Rate 20 Positive End Expiratory 10 Pressure Positive End Expiratory 10 Pressure Positive End Expiratory 10 Pressure Positive End Expiratory 10 Pressure Positive End Expiratory 10 Pressure Positive End Expiratory 10 Pressure Positive End Expiratory 10 Pressure Positive End Expiratory 10 Pressure Positive End Expiratory 10 Pressure Positive End Expiratory 10 Pressure Positive End Expiratory 10 Pressure Peak Inspiratory Airway 35 Pressure Peak Inspiratory Airway 34 Pressure Peak Inspiratory Airway 33 Pressure Peak Inspiratory Airway 26 Pressure Peak Inspiratory Airway 38 Pressure Peak Inspiratory Airway 38 Pressure Peak Inspiratory Airway 37 Pressure Peak Inspiratory Airway 35 Pressure Peak Inspiratory Airway 38 Pressure Peak Inspiratory Airway 28 Pressure Results - Laboratory Findings CBC and BMP: 03/04/17 06:26 03/04/17 06:26 ABG ABG pH 7.38 pH Units (7.32-7.45) 03/04/17 04:55 ABG pCO2 59 mmHg (35-45) H 03/04/17 04:55 ABG pO2 63 mmHg (85-104) L 03/04/17 04:55 ABG O2 Saturation 91 % (95-98) L 03/04/17 04:55 PT/INR, D-dimer PT 13.1 Seconds (9.4-12.1) H 03/03/17 00:09 Abnormal lab findings: Abnormal lab results Hgb 10.9 g/dL (12.9-16.9) L 03/04/17 06:26 Hct 35.1 % (37.5-50.1) L 03/04/17 06:26 MCV 68.3 fL (83.0-100.0) L 03/04/17 06:26 MCH 21.2 pg (28.0-33.3) L 03/04/17 06:26 MCHC 31.1 g/dL (31.6-35.5) L 03/04/17 06:26 RDW 17.8 % (11.5-14.5) H 03/04/17 06:26 Platelet Estimate Slight Decrease (Normal) L 03/04/17 06:26 Anisocytosis 1+ (Not Present) A 03/04/17 06:26 Microcytosis Present (Not Present) A 03/04/17 06:26 PT 13.1 Seconds (9.4-12.1) H 03/03/17 00:09 APTT 112.5 Seconds (26.0-36.0) H* D 03/04/17 06:26 Heparin Anti-Xa, Unfract 0.79 IU/mL (0.30-0.70) H 03/04/17 06:26 ABG pCO2 59 mmHg (35-45) H 03/04/17 04:55 ABG pO2 63 mmHg (85-104) L 03/04/17 04:55 ABG HCO3 34.9 mEQ/L (21-27) H 03/04/17 04:55 ABG Total CO2 36.7 mEq/L (20-26) H 03/04/17 04:55 ABG O2 Saturation 91 % (95-98) L 03/04/17 04:55 ABG Base Excess 8.1 mEq/L (-2.0 to 3.0) H 03/04/17 04:55 Creatinine 0.62 mg/dL (0.72-1.25) L 03/04/17 06:26 Glucose 173 mg/dL (70-99) H 03/04/17 06:26 POC Glucose 172 (58-89) H 03/04/17 04:34 Hemoglobin A1c 8.7 % (-5.6) H 03/03/17 00:09 Calcium 8.4 mg/dL (8.6-10.8) L 03/04/17 06:26 Troponin I 2.97 ng/mL (0-0.03) H* 03/03/17 07:37 Albumin 2.8 g/dL (3.5-5.0) L 03/04/17 06:26 Albumin/Globulin Ratio 0.9 (1.1-2.2) L 03/04/17 06:26 - Microbiology Findings Microbiology Findings: Microbiology, Last 48 Hours 03/02/17 00:31 Legionella Antigen - Final Urine,Catheterized Streptococcus pneumoniae Antigen (M - Final - Clinical Findings Intake & Output: Intake & Output 03/03/17 03/03/17 03/04/17 15:59 23:59 07:59 Intake Total 2218 / 2218 1651.8 / 1651.8 2265.2 / 2265.2 Output Total 1500 / 1500 600 / 600 1350 / 1350 Balance 718 / 718 1051.8 / 1051.8 915.2 / 915.2 Weight 142.8 kg 145.7 kg Consult Discharge Plan - Plan Referrals: Molina Dewey DO [Primary Care Provider] -
[2017-03-04] MEDS: Aspirin Enteric Coated 81 MG Tablet PO SCH (07:51)
[2017-03-04] MEDS: Chlorhexidine Rinse 15 ML MOUTHWASH MM SCH ×2 (07:51→21:20)
[2017-03-04] MEDS: Pantoprazole 40 MG VIAL IVPB SCH (07:51)
[2017-03-04] MEDS ORDERED: *HR* Midazolam HCl 5 MG/5 ML VIAL IVP ONE ×3 (08:36→18:28)
[2017-03-04] MEDS ORDERED: *HR* Midazolam HCl 2 MG/2 ML VIAL IVP ONE ×4 (08:39→18:32)
--- NOTE | 2017-03-04 10:37 | Cardiology Progress Note ---
Date of Encounter: 03/04/17 Time of Encounter: 09:15 Assessment and Plan (1) Suicide attempt by multiple drug overdose Current Visit: Yes Status: Acute Per Cardiology: Previous records reviewed: "Patient consumed multiple substances including benzodiazepines, Neurontin and Suboxone. Patient has a history of depression and schizophrenia. According to mother, the patient locks himself up and his room and does not communicate with the rest of the family. Possible intentional overdose in a suicide attempt. Patient was unable to protect his airway and hence, he was intubated and placed on ventilator". Management per primary service. Qualifiers: Encounter type: initial encounter Qualified Code(s): T50.902A - Poisoning by unspecified drugs, medicaments and biological substances, intentional self- harm, initial encounter (2) NSTEMI (non-ST elevated myocardial infarction) Current Visit: Yes Status: Acute Per Cardiology: Peak troponin 2.97. Will check another trop to evaluate if peaked. Suspect demand ischemia in setting of OD and resp failure, however NSTEMI cannot be excluded. Current echo shows EF 65-70%, normal diastolic function, normal RV size and function, no significant allergies function, no pulmonary hypertension , no segment wall motion antibiotics. On asa, Hep gtt, plavix, statin, BB. Plavix loaded by primary service. Unable to assess symptoms. Unable to assess neurological status. Further recs regarding further ischemic eval based on clinical course and appropriateness (suspected drug OD suicide attempt, current neurological status uncertain, apparent hx of noncompliance, and multiple social issues per RN. No family present to discuss. (3) Respiratory failure Current Visit: Yes Status: Acute Per Cardiology: Intubated. Management per pulm. Qualifiers: Chronicity: acute Respiratory failure complication: hypoxia and hypercapnia Qualified Code(s): J96.01 - Acute respiratory failure with hypoxia ; J96.02 - Acute respiratory failure with hypercapnia Discussion w patient/family: Thank you for involving us in the care of your patient. Please call with any questions. Subjective Principal diagnosis: Overdose, resp Failure, Elevated Trop Interval history: Patient remains intubated and sedated. Following verbal commands. No grimace noted to tactile stimulation. No family currently present at bedside. Objective Vital Signs, Last 4 Hours Temp Pulse Resp BP Pulse Ox 03/04/17 10:00 71 20 105/62 98 06/26/17 09:50 21 103/61 98 03/04/17 09:00 71 20 103/61 98 03/04/17 08:00 80 21 111/67 95 03/04/17 07:50 20 110/68 99 03/04/17 07:22 97.4 F L 03/04/17 07:00 77 97 General: No Apparent Distress HEENT: Atraumatic Cardiac: Reg Rate and Rhythm, Normal S1 and S2, No Murmur Lungs: Normal Breath Sounds, No Wheeze, Rales, Rhonchi Neuro: Other (sedated, s/p OD, hx of schizophrenia, no follwoing of verbal commands, no grimacing noted to tactile stimuli) Extremities: No Edema, Normal Pulses Results 03/04/17 06:26 03/04/17 06:26 Lab Results Laboratory Tests 03/03/17 03/03/17 00:09 07:37 Troponin I 0.65 H* 2.97 H* ITS Impressions Chest X-Ray 03/02/17 22:55 IMPRESSION: 1. Endotracheal tube in good position. 2. Increased perihilar opacities and vascular congestion suggestive of pulmonary edema. 3. Persistent retrocardiac opacity, which may represent atelectasis or consolidation with possible small effusion. D/ / 03/03/2017 07:22:32 Jonas Riddle MD / taylor Interpreting Provider: Jonas Riddle MD Intake & Output 03/01/17 03/02/17 03/03/17 03/04/17 23:59 23:59 23:59 23:59 Intake Total 0 / 0 4169.8 / 4169.8 2625.2 / 2625.2 Output Total 150 / 150 3125 / 3125 1350 / 1350 Balance -150 / -150 1044.8 / 1044.8 1275.2 / 1275.2 Weight 144.1 kg 142.8 kg 145.7 kg Active Medications Acetaminophen (Tylenol) 650 mg PO Q6HR PRN PRN Reason: fever GREATER than 101.2 F Stop: 09/01/17 22:54 Albuterol/Ipratropium (Duoneb) 3 ml IH [id number] WAQAR PRN Reason: Protocol Stop: 09/02/17 00:01 Last Admin: 03/04/17 07:50 Dose: 3 ml Artificial Tears (Lacri-Lube) 1 appl BOTH EYES Q4HR WAQAR PRN Reason: Protocol Stop: 09/02/17 00:01 Last Admin: 03/04/17 07:51 Dose: 1 appl Artificial Tears (Lacri-Lube) 1 appl BOTH EYES Q2HR PRN; Protocol PRN Reason: Dry Eyes Stop: 09/01/17 23:14 Aspirin (Aspirin Ec) 81 mg PO DAILY WAQAR Stop: 09/02/17 09:01 Last Admin: 03/04/17 07:51 Dose: 81 mg Atorvastatin Calcium (Lipitor) 80 mg PO HS WAQAR Stop: 09/01/17 23:46 Last Admin: 03/03/17 21:27 Dose: 80 mg Chlorhexidine Gluconate (Chlorhexidine Rinse) 15 ml MM BID WAQAR Stop: 09/02/17 09:01 Last Admin: 03/04/17 07:51 Dose: 15 ml Clopidogrel Bisulfate (Plavix) 75 mg PO DAILY WAQAR Stop: 09/02/17 09:01 Last Admin: 03/04/17 07:51 Dose: 75 mg Dextrose/Water (Dextrose 50% (Syg)) 25 ml IVP AD PRN PRN Reason: Hypoglycemia Stop: 09/01/17 23:31 Glucagon (Glucagen) 1 mg IM ONCE PRN PRN Reason: Hypoglycemia Stop: 09/01/17 23:31 Glucose (Gluctose) 15 gm PO ONCE PRN PRN Reason: Hypoglycemia Stop: 09/01/17 23:31 Glucose (Gluctose) 30 gm PO ONCE PRN PRN Reason: Hypoglycemia Stop: 09/01/17 23:31 Heparin Sodium (Porcine) (Heparin) 4,000 unit IVP Q6HR PRN PRN Reason: SEE COMMENTS Stop: 09/01/17 23:18 Last Admin: 03/03/17 23:27 Dose: 4,000 unit Heparin Sodium (Porcine) (Heparin) 2,000 unit IVP Q6H PRN PRN Reason: SEE COMMENTS Stop: 09/01/17 23:18 Last Admin: 03/03/17 15:47 Dose: 2,000 unit Sodium Chloride (0.9 % Sodium Chloride) 1,000 mls @ 100 mls/hr IVC .Q10H WAQAR Stop: 09/01/17 23:01 Last Admin: 03/04/17 04:30 Dose: 100 mls/hr Propofol (Diprivan) 1,000 mg in 100 mls @ 0 mls/hr IVC .Q0M WAQAR; Per Protocol PRN Reason: Protocol Stop: 09/01/17 23:16 Last Admin: 03/04/17 10:11 Dose: 3,516.19 mcg/kg/hr, 51.231 mls/hr Heparin Sodium/Dextrose (Heparin 25,000 Unit/500 Ml D5w) 25,000 unit in 500 mls @ 34.584 mls/hr IVC .[id number] WAQAR; 12 UNIT/KG/HR PRN Reason: Protocol Stop: 09/01/17 23:31 Last Titration: 03/04/17 10:09 Dose: 18.4 unit/kg/hr, 53.029 mls/hr Dextrose (Dextrose 5%) 1,000 mls @ 100 mls/hr IVC .Q10H PRN PRN Reason: HYPOGLYCEMIA Stop: 09/01/17 23:31 Ampicillin Sodium/Sulbactam Sodium 1,500 mg/ Sodium Chloride 100 mls @ 200 mls/ hr IVPB Q6HR WAQAR Stop: 09/02/17 00:01 Last Infusion: 03/04/17 05:45 Dose: Infused Fentanyl Citrate 1,000 mcg/ (Sodium Chloride) 100 mls @ 5 mls/hr IVC CONT WAQAR; 50 MCG/HR PRN Reason: Protocol Stop: 09/02/17 08:16 Last Admin: 03/04/17 10:10 Dose: 200 mcg/hr, 20 mls/hr Insulin Human Lispro (Humalog) 0 units SQ Q6HR WAQAR PRN Reason: Protocol Stop: 09/02/17 00:01 Last Admin: 03/04/17 05:04 Dose: 4 units Metoprolol Tartrate (Lopressor) 12.5 mg PO BID [facility] Stop: 09/02/17 10:31 Last Admin: 03/04/17 07:51 Dose: 12.5 mg Naloxone HCl (Narcan) 0.4 mg IVP Q2MIN PRN PRN Reason: Opioid Reversal Stop: 09/01/17 22:54 Ondansetron HCl (Zofran) 4 mg IVP Q6HR PRN; Protocol PRN Reason: Nausea And Vomiting Stop: 09/01/17 22:54 Pantoprazole Sodium (Protonix) 40 mg IVPB DAILY WAQAR Stop: 09/02/17 09:01 Last Admin: 03/04/17 07:51 Dose: 40 mg - Imaging and Cardiology Chest Xray: report reviewed Echo: report reviewed - EKG Interpretation EKG results cardiology: other (Telemetry reviewed with average heart rate 76, sinus rhythm, no significant evidence noted) Consult Discharge Plan - Plan Referrals: Molina Dewey DO [Primary Care Provider] -
[2017-03-04] MEDS: clonazePAM 1 MG TABLET PO SCH ×3 (11:47→21:21)
--- NOTE | 2017-03-04 15:50 | Venous Imaging Report ---
LE Venous Duplex Patient Name:Guy Barker III Order Number:[id number] Procedure Date:03/03/2017 Date:1970Age:46 yrs Gender:Male Location:[facility] Room #: IC12 Federal Air Marshal:Basilia Farrell Referring MD:Kendall To MD head of art:None Reading MD:Francisco Whittaker MD Primary Indications:Pedal edema Secondary Indications: Impressions: Normal bilateral lower extremity deep and superficial venous exam. Findings Venous Duplex Results: Right: The right peroneal vein was not well visualized. Left: The left peroneal vein was not well visualized. Prior Study: No prior study available for comparison. Lower Extremity Venous Duplex Side Vein Compress Spontaneous Flow Augment Diameter (cm) Depth (cm) Right Distal Iliac Normal Yes Phasic Yes Right Common Femoral Normal Yes Phasic Yes Right Superficial Femoral Normal Yes Phasic Yes Right Popliteal Normal Yes Phasic Yes Right Posterior Tibial Normal Yes Phasic Yes Right Peroneal Normal Yes Phasic Yes Right Saphenofemoral Junction Normal Yes Phasic Yes Right Great Saphenous Normal Yes Phasic Yes Right Lesser Saphenous Normal Yes Phasic Yes Left Distal Iliac Normal Yes Phasic Yes Left Common Femoral Normal Yes Phasic Yes Left Superficial Femoral Normal Yes Phasic Yes Left Popliteal Normal Yes Phasic Yes Left Posterior Tibial Normal Yes Phasic Yes Left Peroneal Normal Yes Phasic Yes Left Saphenofemoral [place] Normal Yes Phasic Yes Left Great Saphenous Normal Yes Phasic Yes Left Lesser Saphenous Normal Yes Phasic Yes Updated by Francisco Whittaker MD on 03/04/2017 3:44:23 PM electronically signed on 03/04/2017 3:44:39 PM with status of Final
--- NOTE | 2017-03-04 15:51 | Venous Imaging Report ---
UE Venous Duplex Patient Name:Guy Barker III Order Number:[id number] Procedure Date:03/03/2017 Date:1970Age:46 yrs Gender:Male Location:[facility] Room #: IC12 Director Phone:Basilia Farrell Referring MD:Kendall To MD heat reader:None Reading MD:Francisco Whittaker MD Primary Indications:Right hand swelling Secondary Indications: Impressions: Normal right upper extremity deep and superficial venous exam. Normal contralateral subclavian vein. Findings Prior Study: No prior study available for comparison. Upper Extremity Venous Duplex Side Vein Compress Spontaneous Flow Augment Right Jugular Normal Yes Phasic Yes Right Subclavian Normal Yes Phasic Yes Right Axillary Normal Yes Phasic Yes Right Brachial Normal Yes Phasic Yes Right Cephalic Normal Yes Phasic Yes Right Basilic Normal Yes Phasic Yes Right Radial Normal Yes Phasic Yes Right Ulnar Normal Yes Phasic Yes Left Subclavian Normal Yes Phasic Yes Updated by Francisco Whittaker MD on 03/04/2017 3:46:29 PM electronically signed on 03/04/2017 3:46:55 PM with status of Final
[2017-03-04] MEDS: Dexmedetomidine HCl 400 MCG/100 ML MLS IVC SCH ×2 (19:00→23:44)
[2017-03-05] MEDS: 0.9 % Sodium Chloride 1,000 ML IVC SCH (00:33)
[2017-03-05] MEDS: FentaNYL (PF) 1,000 MCG in 0.9 % Sodium Chloride 80 ML IVC SCH ×2 (01:06→06:17)
[2017-03-05] MEDS: Lacri-Lube 3.5 GM TUBE BOTH EYES SCH ×2 (03:18→07:57)
[2017-03-05] MEDS: Ipratropium/Albuterol Neb 3 ML IH SCH ×4 (04:36→15:38)
[2017-03-05] MEDS: Dexmedetomidine HCl 400 MCG/100 ML MLS IVC SCH (04:57)
[2017-03-05 05:16] LABS: ABG Base Excess 3.9 mEq/L (-2.0 to 3.0); ABG HCO3 29.7 mEQ/L (21-27); ABG Oxygen Saturation 92 % (95-98); ABG PCO2 49 mmHg (35-45); ABG PH 7.39 pH Units (7.32-7.45); ABG PO2 65 mmHg (85-104); ABG TCO2 31.2 mEq/L (20-26)
[2017-03-05 05:17] LABS: Blood Gas FiO2 60 %
[2017-03-05] MEDS: Insulin LISPRO 300 UNITS/3 ML VIAL SQ SCH ×2 (05:35→13:33)
[2017-03-05 05:53] LABS: Basophils % 0.4 %; Eosinophils # 0.1 K/mcL (0.0-0.6); Eosinophils % 1.8 %; Hematocrit 34.1 % (37.5-50.1); Hemoglobin 10.9 g/dL (12.9-16.9); Immature Granulocytes % 0.4 % (0-4); Lymphocytes # 1.4 K/mcL (0.6-4.6); Lymphocytes % 24.1 %; Mean Corpuscular Hemoglobin 21.9 pg (28.0-33.3); Mean Corpuscular Volume 68.5 fL (83.0-100.0); Monocytes # 0.6 K/mcL (0.0-1.3); Monocytes % 10.4 %; Neutrophils # 3.6 K/mcL (1.6-8.9); Platelet Count 183 K/mcL (140-400); Red Blood Count 4.98 M/mcL (4.19-5.50); Segmented Neutrophils % 62.9 %
[2017-03-05 06:09] LABS: BUN/Creatinine Ratio 11 (6-26); Blood Urea Nitrogen 7 mg/dL (8-26); Calcium 8.6 mg/dL (8.6-10.8); Carbon Dioxide 26 mEq/L (19-29); Chloride 106 mEq/L (98-109); Glucose 169 mg/dL (70-99); Osmolality,Calculated 294 (280-300); Sodium 141 mEq/L (136-145); eGFR For African Americans > 60 (> 60); eGFR For Non-African Americans > 60 (> 60)
[2017-03-05 06:29] LABS: Microcytosis Present (Not Present); Platelet Estimate Normal (Normal)
[2017-03-05] MEDS: Chlorhexidine Rinse 15 ML MOUTHWASH MM SCH (07:56)
[2017-03-05] MEDS: Pantoprazole 40 MG VIAL IVPB SCH (07:56)
[2017-03-05] MEDS: clonazePAM 1 MG TABLET PO SCH ×2 (07:56→13:38)
[2017-03-05] MEDS: Aspirin Enteric Coated 81 MG Tablet PO SCH (07:57)
--- NOTE | 2017-03-05 08:16 | Pulmonology Progress Note ---
Date of Encounter: 03/05/17 Time of Encounter: 08:14 Assessment and Plan (1) Respiratory failure Current Visit: Yes Status: Acute CAR SALESPERSON: Sedated on mechanical ventilation with propofol, fentanyl, precedex. History of schizophrenia. Klonopin 1 mg TID, Seroquel 100 mg q8H. Continue to hold Lamictal, risperidone, perphenazine, hydroxyzine, Xanax. Consult to psychiatry, appreciate recommendations. Pulmonary: Acute respiratory failure secondary to overdose of multiple substances including benzodiazepines, Neurontin, and Suboxone. Extubated 03/05. Cardiovascular: NSTEMI, completed 48 hours of heparin gtt. On aspirin, statin , beta cornelio. GI: Bowel regimen started Nutrition: Diabetic diet GI Prophylaxis: Protonix IV Renal: Stable ID: Stable Heme/Onc: Stable anemia, continue to monitor Endocrine: DM II, SSI DVT Prophylaxis: SQ Heparin Skin: ICU Skin care protocol Qualifiers: Chronicity: acute Respiratory failure complication: hypoxia and hypercapnia Qualified Code(s): J96.01 - Acute respiratory failure with hypoxia ; J96.02 - Acute respiratory failure with hypercapnia (2) Encephalopathy, toxic Current Visit: Yes Status: Acute (3) Overdose Current Visit: Yes Status: Acute Qualifiers: Encounter type: initial encounter Injury intent: undetermined intent Qualified Code(s): T50.904A - Poisoning by unspecified drugs, medicaments and biological substances, undetermined, initial encounter (4) NSTEMI (non-ST elevated myocardial infarction) Current Visit: Yes Status: Acute (5) Swelling of right hand Current Visit: Yes Status: Acute (6) Schizophrenia Current Visit: Yes Status: Acute Qualifiers: Schizophrenia type: unspecified Qualified Code(s): F20.9 - Schizophrenia, unspecified (7) Diabetes mellitus Current Visit: Yes Status: Chronic Qualifiers: Diabetes mellitus type: type 2 Diabetes mellitus complication status: with neurologic complications Diabetes mellitus complication detail: with polyneuropathy Diabetes mellitus terminal manager insulin use: with senior living use Qualified Code(s): E11.42 - Type 2 diabetes mellitus with diabetic polyneuropathy; Z79.4 - skilled nursing (current) use of insulin Subjective Principal diagnosis: Overdose Interval history: Patient with large residuals from tube feeds overnight, greater than 500 mL. Also with increased agitation overnight. Objective PUL Vital signs: Last Vital Signs Temp 97.6 F 03/05/17 07:29 Pulse 64 03/05/17 07:00 Resp 20 03/05/17 07:48 BP 122/77 03/05/17 07:48 Pulse Ox 93 03/05/17 07:48 General appearance: no acute distress, other (sedated on mechanical ventilation) Eyes: nonicteric ENT: oropharynx moist Neck: supple Effort: normal Auscultation: bilateral: clear Cardiovascular: regular rate and rhythm Gastrointestinal: absent bowel sounds, soft, other (distended) Integumentary: normal Extremities: no cyanosis, no edema, pink and warm, pulses normal Musculoskeletal: no deformities other (Opens eyes, nods head to questions, moves his feet, does not squeeze hand.) Ventilator Settings Ventilator Settings: Ventilator Settings, Last 8 Hours Ventilator Mode CPAP Ventilator Mode VC+ Ventilator Mode VC+ Ventilator Mode VC+ Ventilator Mode VC+ Ventilator Mode VC+ Ventilator Mode VC+ Ventilator Mode VC+ Ventilator Mode VC+ Ventilator Mode VC+ Ventilator Mode VC+ Ventilator Tidal Volume 550 Setting Ventilator Tidal Volume 550 Setting Ventilator Tidal Volume 550 Setting Ventilator Tidal Volume 550 Setting Ventilator Tidal Volume 550 Setting Ventilator Tidal Volume 550 Setting Ventilator Tidal Volume 550 Setting Ventilator Tidal Volume 550 Setting Ventilator Tidal Volume 550 Setting Ventilator Tidal Volume 550 Setting Ventilator Respiratory Rate 20 Setting Ventilator Respiratory Rate 20 Setting Ventilator Respiratory Rate 20 Setting Ventilator Respiratory Rate 20 Setting Ventilator Respiratory Rate 20 Setting Ventilator Respiratory Rate 20 Setting Ventilator Respiratory Rate 20 Setting Ventilator Respiratory Rate 20 Setting Ventilator Respiratory Rate 20 Setting Ventilator Respiratory Rate 20 Setting Actual Respiratory Rate 20 Actual Respiratory Rate 22 Actual Respiratory Rate 22 Actual Respiratory Rate 22 Actual Respiratory Rate 24 Actual Respiratory Rate 21 Actual Respiratory Rate 20 Actual Respiratory Rate 21 Actual Respiratory Rate 21 Actual Respiratory Rate 21 Actual Respiratory Rate 25 Positive End Expiratory 8 Pressure Positive End Expiratory 8 Pressure Positive End Expiratory 10 Pressure Positive End Expiratory 10 Pressure Positive End Expiratory 10 Pressure Positive End Expiratory 10 Pressure Positive End Expiratory 10 Pressure Positive End Expiratory 10 Pressure Positive End Expiratory 10 Pressure Positive End Expiratory 10 Pressure Positive End Expiratory 10 Pressure Positive End Expiratory 10 Pressure Peak Inspiratory Airway 19 Pressure Peak Inspiratory Airway 16 Pressure Peak Inspiratory Airway 24 Pressure Peak Inspiratory Airway 22 Pressure Peak Inspiratory Airway 18 Pressure Peak Inspiratory Airway 23 Pressure Peak Inspiratory Airway 25 Pressure Peak Inspiratory Airway 25 Pressure Peak Inspiratory Airway 24 Pressure Peak Inspiratory Airway 25 Pressure Peak Inspiratory Airway 15 Pressure Results - Laboratory Findings CBC and BMP: 03/05/17 05:34 03/05/17 05:34 ABG ABG pH 7.39 pH Units (7.32-7.45) 03/05/17 05:06 ABG pCO2 49 mmHg (35-45) H 03/05/17 05:06 ABG pO2 65 mmHg (85-104) L 03/05/17 05:06 ABG O2 Saturation 92 % (95-98) L 03/05/17 05:06 PT/INR, D-dimer PT 13.1 Seconds (9.4-12.1) H 03/03/17 00:09 Abnormal lab findings: Abnormal lab results Hgb 10.9 g/dL (12.9-16.9) L 03/05/17 05:34 Hct 34.1 % (37.5-50.1) L 03/05/17 05:34 MCV 68.5 fL (83.0-100.0) L 03/05/17 05:34 MCH 21.9 pg (28.0-33.3) L 03/05/17 05:34 RDW 18.0 % (11.5-14.5) H 03/05/17 05:34 Anisocytosis 1+ (Not Present) A 03/04/17 06:26 Microcytosis Present (Not Present) A 03/05/17 05:34 PT 13.1 Seconds (9.4-12.1) H 03/03/17 00:09 Heparin Anti-Xa, Unfract 0.79 IU/mL (0.30-0.70) H 03/04/17 06:26 ABG pCO2 49 mmHg (35-45) H 03/05/17 05:06 ABG pO2 65 mmHg (85-104) L 03/05/17 05:06 ABG HCO3 29.7 mEQ/L (21-27) H 03/05/17 05:06 ABG Total CO2 31.2 mEq/L (20-26) H 03/05/17 05:06 ABG O2 Saturation 92 % (95-98) L 03/05/17 05:06 ABG Base Excess 3.9 mEq/L (-2.0 to 3.0) H 03/05/17 05:06 BUN 7 mg/dL (8-26) L 03/05/17 05:34 Creatinine 0.63 mg/dL (0.72-1.25) L 03/05/17 05:34 Glucose 169 mg/dL (70-99) H 03/05/17 05:34 POC Glucose 173 (58-89) H 03/05/17 05:32 Hemoglobin A1c 8.7 % (-5.6) H 03/03/17 00:09 Troponin I 0.68 ng/mL (0-0.03) H* 03/04/17 06:26 Albumin 2.8 g/dL (3.5-5.0) L 03/04/17 06:26 Albumin/Globulin Ratio 0.9 (1.1-2.2) L 03/04/17 06:26 - Microbiology Findings Microbiology Findings: Microbiology, Last 48 Hours 03/04/17 15:44 Sputum Culture - Preliminary Sputum 03/03/17 00:09 Blood Culture - Preliminary Peripheral Venipuncture No growth. 03/03/17 00:09 Blood Culture - Preliminary Peripheral Venipuncture No growth. - Clinical Findings Intake & Output: Intake & Output 03/04/17 03/05/17 03/05/17 23:59 07:59 15:59 Intake Total 540 / 540 1965 / 1965 Output Total 900 / 900 1550 / 1550 Balance -360 / -360 415 / 415 Weight 146.652 kg Consult Discharge Plan - Plan Referrals: Molina Dewey DO [Primary Care Provider] -
[2017-03-05] MEDS ORDERED: Docusate Oral Soln 100 MG/10 ML UDC GTUBE SCH (10:30)
[2017-03-05] MEDS ORDERED: 0.9 % Sodium Chloride 1,000 ML ONE (10:55)
[2017-03-05] MEDS ORDERED: Haloperidol Lactate 5 MG/ML VIAL IVP ONE ×2 (11:03→11:15)
[2017-03-05] MEDS ORDERED: Haloperidol Lactate 5 MG/ML VIAL ONE (11:04)
[2017-03-05] MEDS ORDERED: *HR* LORazepam 2 MG/ML VIAL ONE (11:07)
[2017-03-05] MEDS ORDERED: 0.9 % Sodium Chloride 500 ML IVC ONE (11:15)
[2017-03-05] MEDS ORDERED: *HR* EPINEPHrine 1 MG/10 ML SYRINGE IVP ONE ×2 (11:33→16:34)
[2017-03-05] MEDS ORDERED: Amiodarone 300 MG in D5% in Water 100 ML IVPB ONE (11:35)
[2017-03-05] MEDS ORDERED: Amiodarone Premix 150 MG/100 ML BAG IVPB ONE (11:42)
[2017-03-05] MEDS ORDERED: Magnesium Sulfate 2 GM in D5% in Water 100 ML IVPB ONE (11:42)
[2017-03-05] MEDS ORDERED: *HR* Vecuronium 10 MG VIAL IVP ONE (13:11)
[2017-03-05 13:14] LABS: Basophils # 0.1 K/mcL (0.0-0.2); Basophils % 0.5 %; Eosinophils # 0.1 K/mcL (0.0-0.6); Eosinophils % 0.6 %; Hematocrit 41.4 % (37.5-50.1); Hemoglobin 12.3 g/dL (12.9-16.9); Immature Granulocytes % 2.7 % (0-4); Lymphocytes % 11.6 %; Mean Corpuscular HGB Conc 29.7 g/dL (31.6-35.5); Mean Corpuscular Hemoglobin 20.7 pg (28.0-33.3); Mean Corpuscular Volume 69.8 fL (83.0-100.0); Mean Platelet Volume 9.7 fL (9.4-12.4); Monocytes # 1.2 K/mcL (0.0-1.3); Monocytes % 6.9 %; Platelet Count 270 K/mcL (140-400); Red Blood Count 5.93 M/mcL (4.19-5.50); Red Cell Distribution Width 18.2 % (11.5-14.5); Segmented Neutrophils % 77.7 %
--- NOTE | 2017-03-05 13:14 | Procedure Note ---
Date of procedure: 03/05/17 Pre-op diagnosis: respiratory failure Post-op diagnosis: same Procedure: Patient was intubated for cardiac arrest. No sedation was given. Grade 1 view of the cords without kaleidoscope was obtained. Endotracheal tube was passed with direct visualization. Good color change and good bilateral breath sounds. Surgeon: Alonzo Ba Condition: critical Disposition: ICU
--- NOTE | 2017-03-05 13:16 | Procedure Note ---
Date of procedure: 03/05/17 Pre-op diagnosis: Cardiac arrest Post-op diagnosis: same Procedure: Ultrasound-guided thoracentesis of the right IJ vein. Patient was cleaned and prepped in the usual sterile fashion. The right internal jugular vein was accessed with ultrasound guidance. A wire was passed into the vessel. A wire was verified and the vein with ultrasound. The skin was nicked and dilated. A triple-lumen central venous catheter was advanced over the wire utilizing Seldinger technique. Good blood draw from each port, and each port flushed easily. The line was sutured into place and a sterile dressing was placed. Anesthesia: local Surgeon: Alonzo Ba Estimated blood loss (cc): 0 Condition: critical Disposition: ICU
[2017-03-05] MEDS: *HR* LORazepam 2 MG/ML VIAL IVP ONE ×2 (13:18→13:25)
[2017-03-05 13:34] LABS: Alanine Aminotransferase 73 Units/L (0-55); Albumin 2.9 g/dL (3.5-5.0); Albumin/Globulin Ratio 0.8 (1.1-2.2); Alkaline Phosphatase 143 Units/L (38-126); Aspartate Amino Transferase 129 Units/L (5-34); BUN/Creatinine Ratio 10 (6-26); Bilirubin,Total 0.7 mg/dL (0.2-1.2); Blood Urea Nitrogen 8 mg/dL (8-26); Calcium 8.5 mg/dL (8.6-10.8); Carbon Dioxide 23 mEq/L (19-29); Chloride 105 mEq/L (98-109); Globulin 3.6 g/dL (2.4-3.5); Glucose 283 mg/dL (70-99); Osmolality,Calculated 303 (280-300); Potassium 4.1 mEq/L (3.5-4.5); Sodium 142 mEq/L (136-145); Total Protein 6.5 g/dL (6.0-8.3); eGFR For African Americans > 60 (> 60); eGFR For Non-African Americans > 60 (> 60)
--- NOTE | 2017-03-05 13:36 | Event Note ---
Date of Encounter: 03/05/17 Time of Encounter: 13:17 CODE BLUE note. The patient was extubated to nasal cannula after successfully passing a spontaneous breathing trial. He was initially stable postextubation, however he developed acute agitation and hypoxia. He would not leave on his supplemental oxygen and was desaturating into the 70s and 80s. He was given intravenous Haldol and Ativan in attempts to treat his agitation. Security was called to assist with managing the patient. After the patient was calm enough to sit back in bed, he suddenly became unresponsive and developed ventricular fibrillation. He was found to be pulseless and ACLS was initiated. An advanced airway was obtained. Patient was defibrillated into PEA and CPR was resumed. He was given epinephrine, amiodarone 300 mg IV push 1, and 2 g of magnesium. After approximately 7 minutes of CPR, a pulse was obtained and the patient was in sinus tachycardia. He did display purposeful movements with attemps at pulling out the endotracheal tube, it was decided not to undergo therapeutic hypothermia. We obtained an EKG, which did reveal new ST segment depressions. QTc was not prolonged. Assessment/plan: - Ventricular fibrillation: Concern for acute coronary syndrome, possibly related to acute agitation and hypoxia. We will trend troponins, repeat transthoracic echocardiogram, and restart heparin drip. Continue beta blockers and antiplatelets. Continue amiodarone drip. Check electrolytes and replace magnesium for goal greater than 2 and potassium with a goal greater than 4. - Acute respiratory failure with hypoxia: Increasing oxygen requirements post arrest. We will maintain high PEEP and low tidal volume strategy. Acute pulmonary edema noted on postarrest chest x-ray is contributing significantly. Then asynchrony due to acute agitation is also making him difficult to oxygenate. We will diurese to tolerance and initiate neuromuscular blockade. I updated the family following the cardiac arrest. Patient's mother and daughters are requesting that he be transferred to [facility].
[2017-03-05 13:37] LABS: Neutrophils # 13.4 K/mcL (1.6-8.9)
[2017-03-05] MEDS ORDERED: *HR* Heparin 5,000 UNIT/ML VIAL IVP ONE (13:53)
[2017-03-05] MEDS ORDERED: *HR* Heparin 5,000 UNIT/ML VIAL IVP PRN (13:53)
[2017-03-05] MEDS ORDERED: Furosemide 40 MG/4 ML VIAL IVP ONE (13:57)
[2017-03-05] MEDS ORDERED: Heparin 25,000 UNIT/500 ML D5W 25,000 UNIT/500 ML MLS IVC SCH (14:00)
[2017-03-05] MEDS ORDERED: *HR* Heparin 5,000 UNIT/ML VIAL SQ SCH (14:00)
[2017-03-05 14:03] LABS: Anisocytosis 1+ (Not Present); Macrocytosis Present (Not Present); Microcytosis Present (Not Present); Platelet Estimate Normal (Normal)
--- NOTE | 2017-03-05 14:55 | Cardiology Progress Note ---
Date of Encounter: 03/05/17 Time of Encounter: 13:30 Assessment and Plan (1) Suicide attempt by multiple drug overdose Current Visit: Yes Status: Acute Per Cardiology: Previous records reviewed: "Patient consumed multiple substances including benzodiazepines, Neurontin and Suboxone. Patient has a history of depression and schizophrenia. According to mother, the patient locks himself up and his room and does not communicate with the rest of the family. Possible intentional overdose in a suicide attempt. Patient was unable to protect his airway and hence, he was intubated and placed on ventilator". Family reports unsure what patient specifically took at home. Management per primary service. Qualifiers: Encounter type: initial encounter Qualified Code(s): T50.902A - Poisoning by unspecified drugs, medicaments and biological substances, intentional self- harm, initial encounter (2) NSTEMI (non-ST elevated myocardial infarction) Current Visit: Yes Status: Acute Per Cardiology: Peak troponin 2.97. Suspect demand ischemia in setting of OD and resp failure, however NSTEMI cannot be excluded. Echo showed EF 65-70%, normal diastolic function, normal RV size and function, no significant valvular dysfunction, no pulmonary hypertension, NSWMA. Plans were to f/u as outpatient regarding further ischemic eval based on clinical course and appropriateness (suspected drug OD suicide attempt, current neurological status remains uncertain, apparent hx of noncompliance, now recently combative with staff regarding compliance with treatment, and multiple social issues per staff trainer). On asa and statin-- will stop stain, LFT now elevated and now on amio. (3) Respiratory failure Current Visit: Yes Status: Acute Per Cardiology: Recently extubated. Became hypoxic in setting of noncompliance with medical therapy (required security to be called) and now intubated again. Management per pulm. Qualifiers: Chronicity: acute Respiratory failure complication: hypoxia and hypercapnia Qualified Code(s): J96.01 - Acute respiratory failure with hypoxia ; J96.02 - Acute respiratory failure with hypercapnia (4) Ventricular fibrillation Current Visit: Yes Status: Acute Per Cardiology: Noted VF arrest in setting of hypoxia, noncompliance, and required 1 defib and re-intubation. I had lengthy discussion with family regarding further ischemic evaluation. Clinically stable now that he is reintubated. Recommend [facility] prior to DC since now had VF arrest, however still uncertain if patient will comply with procedure and if would be deemed a good candidate, Will continue to monitor. Discussed and reviewed with Dr. Chapman. Echo ordered by primary service- - attempted to switch to limited, however already completed. Trops pending. On Hep gtt again. I had f/u with patient, family indicates plans to transfer to [facility]. Primary service indicates patient accepted, however different family members evaluating if want to stay at [facility]. Will continue to follow hospital course. Discussion w patient/family: Thank you for involving us in the care of your patient. Please call with any questions. Subjective Principal diagnosis: Overdose Interval history: Patient extubated this am and became agitated/noncompliant with O2 requiring security. Patient noted to have VF arrest requiring 1 defibrillation. Now intubated and sedated again. Family at bedside. Patient opened eyes to verbal stimuli, but no following of commands. Per staff trainer, patient appears to not have had CP, however his mental status was not clear. Family at bedside and requesting transfer to [facility]. They report unsure of what meds he actually took at home. They report no awareness to CP prior to admission, but do report concerns for bilateral LE swelling and R hand swelling from a "bug bite" recently. Objective Vital Signs, Last 4 Hours Temp Pulse Resp BP Pulse Ox 03/05/17 14:00 116 26 125/71 90 03/05/17 13:39 25 196/94 90 03/05/17 13:00 103 20 152/71 92 03/05/17 12:02 97.4 F L 03/05/17 12:00 107 03/05/17 11:55 23 147/105 76 HEENT: Atraumatic, Normocephaly Cardiac: Reg Rate and Rhythm, Normal S1 and S2, No Murmur, Other (ST 100s on tele currently) Lungs: Normal Breath Sounds, No Wheeze, Rales, Rhonchi Neuro: Other (sedated) Extremities: Other (+1 nonpitting bilateral LE) Results 03/05/17 12:48 03/05/17 12:48 Lab Results Laboratory Tests 03/03/17 03/03/17 03/03/17 00:09 00:09 07:37 WBC INR 1.2 Potassium Magnesium AST ALT Troponin I 0.65 H* 2.97 H* 03/04/17 03/04/17 03/05/17 06:26 06:26 05:34 WBC 5.7 INR Potassium Magnesium AST 32 ALT 28 Troponin I 0.68 H* 03/05/17 03/05/17 03/05/17 05:34 12:48 12:48 WBC 17.2 H D INR Potassium 4.0 Magnesium AST ALT Troponin I 0.74 H* 03/05/17 12:48 WBC INR Potassium Magnesium 2.0 AST 129 H ALT 73 H Troponin I Impressions Retroperitoneum Ultrasound 03/04/17 08:30 IMPRESSION: Normal echotexture of the kidneys bilaterally without evidence of obstruction. There is a hypoechoic mass identified within the mid to lower aspect of the left kidney, which shows good through transmission, though does not appear anechoic. This could be a minimally complex cyst. The size of this appears only minimally increased from 2015. This would best be characterized with a CT or MR per renal mass protocol. Of note, this lesion measured 3 Hounsfield units consistent with simple fluid on the previous CT examination. No obstruction or echogenic shadowing calculi. Incidental note is made of hepatic steatosis. D/ / Cam Parikh MD / Cam Parikh MD Interpreting Provider: Cam Parikh MD X-Ray 03/04/17 15:06 IMPRESSION: Enteric tube in the stomach as above. No evidence of bowel obstruction. D/ / Tha Ng MD / Tha Ng MD Interpreting Provider: Tha Ng MD X-Ray 03/04/17 15:30 IMPRESSION: Tip and side port of the enteric tube within the gastric body. D/ / Todd Gar MD / Todd Gar MD Interpreting Provider: Todd Gar MD Chest X-Ray 03/05/17 00:00 IMPRESSION: Persistent perihilar edema with bilateral effusions and atelectasis. Satisfactory position of life-support appliances. No obvious pneumothorax. D/ / Cam Holcomb MD / Cam Holcomb MD Interpreting Provider: Cam Holcomb MD X-Ray 03/05/17 08:30 IMPRESSION: Nasogastric tube side port and tip project over the proximal gastric body. D/ / 03/05/2017 10:14:49 Pavel Daniel MD / jared Interpreting Provider: Pavel Daniel MD Chest X-Ray 03/05/17 11:48 IMPRESSION: 1. Support lines and tubes are in satisfactory position. 2. Heart size is enlarged. Diffuse increased interstitial opacities may be due to pulmonary edema or multifocal pneumonia/ARDS. This has worsened from 03/02/2017. D/ / Fredi Travis MD / Fredi Travis MD Interpreting Provider: Fredi Travis MD X-Ray 03/05/17 11:48 IMPRESSION: Enteric tube has been repositioned and is coiled within the stomach. The tip and proximal side port are noted within the stomach. D/ / Sabra Daniel MD / Sabra Daniel MD Interpreting Provider: Sabra Daniel MD Active Medications Acetaminophen (Tylenol) 650 mg PO Q6HR PRN PRN Reason: fever GREATER than 101.2 F Stop: 09/01/17 22:54 Albuterol/Ipratropium (Duoneb) 3 ml IH [id number] WAQAR PRN Reason: Protocol Stop: 09/02/17 00:01 Last Admin: 03/05/17 11:27 Dose: Not Given Artificial Tears (Lacri-Lube) 1 appl BOTH EYES Q2HR PRN; Protocol PRN Reason: Dry Eyes Stop: 09/01/17 23:14 Aspirin (Aspirin Ec) 81 mg PO DAILY [facility] Stop: 09/02/17 09:01 Last Admin: 03/05/17 07:57 Dose: 81 mg Atorvastatin Calcium (Lipitor) 80 mg PO HS WAQAR Stop: 09/01/17 23:46 Last Admin: 03/04/17 21:21 Dose: 80 mg Chlorhexidine Gluconate (Chlorhexidine Rinse) 15 ml MM BID WAQAR Stop: 09/02/17 09:01 Last Admin: 03/05/17 07:56 Dose: 15 ml Clonazepam (Klonopin) 1 mg PO TID [facility] Stop: 09/03/17 10:46 Last Admin: 03/05/17 13:38 Dose: 1 mg Dextrose/Water (Dextrose 50% (Syg)) 25 ml IVP AD PRN PRN Reason: Hypoglycemia Stop: 09/01/17 23:31 Docusate Sodium (Colace) 100 mg GTUBE BID WAQAR PRN Reason: Protocol Stop: 03/05/17 23:59 Last Admin: 03/05/17 13:37 Dose: 100 mg Glucagon (Glucagen) 1 mg IM ONCE PRN PRN Reason: Hypoglycemia Stop: 09/01/17 23:31 Glucose (Gluctose) 15 gm PO ONCE PRN PRN Reason: Hypoglycemia Stop: 09/01/17 23:31 Glucose (Gluctose) 30 gm PO ONCE PRN PRN Reason: Hypoglycemia Stop: 09/01/17 23:31 Heparin Sodium (Porcine) (Heparin) 2,000 unit IVP Q6H PRN PRN Reason: SEE COMMENTS Stop: 09/04/17 13:54 Propofol (Diprivan) 1,000 mg in 100 mls @ 0 mls/hr IVC .Q0M WAQAR; Per Protocol PRN Reason: Protocol Stop: 09/01/17 23:16 Last Admin: 03/05/17 14:31 Dose: 3,607.17 mcg/kg/hr, 52.9 mls/hr Dextrose (Dextrose 5%) 1,000 mls @ 100 mls/hr IVC .Q10H PRN PRN Reason: HYPOGLYCEMIA Stop: 09/01/17 23:31 Fentanyl Citrate 1,000 mcg/ (Sodium Chloride) 100 mls @ 5 mls/hr IVC CONT WAQAR; 50 MCG/HR PRN Reason: Protocol Stop: 09/02/17 08:16 Last Titration: 03/05/17 11:20 Dose: Infused Dexmedetomidine HCl (Precedex) 400 mcg in 100 mls @ 7.285 mls/hr IVC .[id number] WAQAR; 0.2 MCG/KG/HR PRN Reason: Protocol Stop: 09/03/17 19:16 Last Titration: 03/05/17 11:30 Dose: Infused Midazolam HCl 50 mg/ Sodium (Chloride) 100 mls @ 4 mls/hr IVC CONT WAQAR; 2 MG/HR PRN Reason: Protocol Stop: 09/04/17 12:46 Last Admin: 03/05/17 13:23 Dose: 2 mg/hr, 4 mls/hr Heparin Sodium/Dextrose (Heparin 25,000 Unit/500 Ml D5w) 25,000 unit in 500 mls @ 19.945 mls/hr IVC .Q24H WAQAR; 6.8 UNIT/KG/HR PRN Reason: Protocol Stop: 09/04/17 14:01 Insulin Human Lispro (Humalog) 0 units SQ Q6HR WAQAR PRN Reason: Protocol Stop: 09/02/17 00:01 Last Admin: 03/05/17 13:33 Dose: Not Given Metoprolol Tartrate (Lopressor) 12.5 mg PO BID [facility] Stop: 09/02/17 10:31 Last Admin: 03/05/17 07:57 Dose: 12.5 mg Naloxone HCl (Narcan) 0.4 mg IVP Q2MIN PRN PRN Reason: Opioid Reversal Stop: 09/01/17 22:54 Ondansetron HCl (Zofran) 4 mg IVP Q6HR PRN; Protocol PRN Reason: Nausea And Vomiting Stop: 09/01/17 22:54 Pantoprazole Sodium (Protonix) 40 mg IVPB DAILY [facility] Stop: 09/02/17 09:01 Last Admin: 03/05/17 07:56 Dose: 40 mg Quetiapine Fumarate (Seroquel) 100 mg PO Q8H WAQAR PRN Reason: Protocol Stop: 09/03/17 10:46 Last Admin: 03/05/17 13:38 Dose: 100 mg - Imaging and Cardiology Echo: pending, report reviewed - EKG Interpretation EKG results cardiology: personally reviewed (VF noted, post arrest ST with diffuse ST depression), other (ST on tele) Consult Discharge Plan - Plan Referrals: Molina Dewey DO [Primary Care Provider] -
[2017-03-05] MEDS ORDERED: Perflutren Lipid Microsphere 1.3 ML in 0.9 % Sodium Chloride 8.7 ML IVP ONE (14:56)
[2017-03-05] MEDS ORDERED: Perflutren Lipid Microsphere 2 ML VIAL ONE (15:01)
--- NOTE | 2017-03-05 15:29 | Discharge Summary ---
Date of Encounter: 03/05/17 Time of Encounter: 15:27 - Discharge Diagnosis (1) Cardiac arrest Priority: Primary Status: Acute (2) Respiratory failure Priority: Primary Status: Acute Qualifiers: Chronicity: acute Respiratory failure complication: hypoxia and hypercapnia Qualified Code(s): J96.01 - Acute respiratory failure with hypoxia ; J96.02 - Acute respiratory failure with hypercapnia (3) Encephalopathy, toxic Priority: Secondary Status: Acute (4) Overdose Priority: Secondary Status: Acute Qualifiers: Encounter type: initial encounter Injury intent: undetermined intent Qualified Code(s): T50.904A - Poisoning by unspecified drugs, medicaments and biological substances, undetermined, initial encounter (5) NSTEMI (non-ST elevated myocardial infarction) Priority: Secondary Status: Acute (6) Swelling of right hand Priority: Secondary Status: Acute (7) Schizophrenia Priority: Secondary Status: Acute Qualifiers: Schizophrenia type: unspecified Qualified Code(s): F20.9 - Schizophrenia, unspecified (8) Diabetes mellitus Priority: Secondary Status: Chronic Qualifiers: Diabetes mellitus type: type 2 Diabetes mellitus complication status: with neurologic complications Diabetes mellitus complication detail: with polyneuropathy Diabetes mellitus 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 03/05/17 [Rx] Docusate [Colace] 100 mg GTUBE BID udc 03/05/17 [Rx] Heparin 2,000 unit IVP Q6H PRN #0 vial 03/05/17 [Rx] Ipratropium/Albuterol Neb [Duoneb] 3 ml IH [id number] inhsol 03/05/17 [Rx] Metoprolol [Lopressor] 12.5 mg PO BID tablet 03/05/17 [Rx] Pantoprazole [Protonix] 40 mg IVPB DAILY vial 03/05/17 [Rx] Quetiapine Fumarate [Seroquel] 100 mg PO Q8H tablet 03/05/17 [Rx] clonazePAM [Klonopin] 1 mg PO TID tablet 03/05/17 [Rx] Allergies/Adverse Reactions: Allergies No Known Allergies Allergy (Verified 04/18/15 10:56) Labs on day of discharge: Labs from last 24 hours 03/05/17 03/05/17 03/05/17 12:48 12:48 12:48 WBC 17.2 H D RBC 5.93 H Hgb 12.3 L Hct 41.4 MCV 69.8 L MCH 20.7 L MCHC 29.7 L RDW 18.2 H Plt Count 270 MPV 9.7 Immature Gran % 2.7 Seg Neutrophils % 77.7 Lymphocytes % 11.6 Monocytes % 6.9 Eosinophils % 0.6 Basophils % 0.5 Neutrophils # 13.4 H Lymphocytes # 2.0 Monocytes # 1.2 Eosinophils # 0.1 Basophils # 0.1 Platelet Estimate Normal Anisocytosis 1+ A Microcytosis Present A Macrocytosis Present A APTT ABG pH ABG pCO2 ABG pO2 ABG HCO3 ABG Total CO2 ABG O2 Saturation ABG Base Excess Blood Gas Modality Inspired O2 Sodium 142 Potassium 4.1 Chloride 105 Carbon Dioxide 23 BUN 8 Creatinine 0.83 Est GFR ( Amer) > 60 Est GFR (Non-Af Amer) > 60 BUN/Creatinine Ratio 10 Glucose 283 H POC Glucose Calculated Osmolality 303 H Calcium 8.5 L Magnesium 2.0 Total Bilirubin 0.7 AST 129 H ALT 73 H Alkaline Phosphatase 143 H Troponin I 0.74 H* Serum Total Protein 6.5 Albumin 2.9 L Globulin 3.6 H Albumin/Globulin Ratio 0.8 L 03/05/17 03/05/17 03/05/17 10:47 05:34 05:34 WBC 5.7 RBC 4.98 Hgb 10.9 L Hct 34.1 L MCV 68.5 L MCH 21.9 L MCHC 32.0 RDW 18.0 H Plt Count 183 MPV 10.0 Immature Gran % 0.4 Seg Neutrophils % 62.9 Lymphocytes % 24.1 Monocytes % 10.4 Eosinophils % 1.8 Basophils % 0.4 Neutrophils # 3.6 Lymphocytes # 1.4 Monocytes # 0.6 Eosinophils # 0.1 Basophils # 0.0 Platelet Estimate Normal Anisocytosis Microcytosis Present A Macrocytosis APTT ABG pH ABG pCO2 ABG pO2 ABG HCO3 ABG Total CO2 ABG O2 Saturation ABG Base Excess Blood Gas Modality Inspired O2 Sodium 141 Potassium 4.0 Chloride 106 Carbon Dioxide 26 BUN 7 L Creatinine 0.63 L Est GFR ( Amer) > 60 Est GFR (Non-Af Amer) > 60 BUN/Creatinine Ratio 11 Glucose 169 H POC Glucose 134 H Calculated Osmolality 294 Calcium 8.6 Magnesium Total Bilirubin AST ALT Alkaline Phosphatase Troponin I Serum Total Protein Albumin Globulin Albumin/Globulin Ratio 03/05/17 03/05/17 03/04/17 05:32 05:06 23:47 WBC RBC Hgb Hct MCV MCH MCHC RDW Plt Count MPV Immature Gran % Seg Neutrophils % Lymphocytes % Monocytes % Eosinophils % Basophils % Neutrophils # Lymphocytes # Monocytes # Eosinophils # Basophils # Platelet Estimate Anisocytosis Microcytosis Macrocytosis APTT ABG pH 7.39 ABG pCO2 49 H ABG pO2 65 L ABG HCO3 29.7 H ABG Total CO2 31.2 H ABG O2 Saturation 92 L ABG Base Excess 3.9 H Blood Gas Modality VC+ Inspired O2 60 Sodium Potassium Chloride Carbon Dioxide BUN Creatinine Est GFR ( Amer) Est GFR (Non-Af Amer) BUN/Creatinine Ratio Glucose POC Glucose 173 H 152 H Calculated Osmolality Calcium Magnesium Total Bilirubin AST ALT Alkaline Phosphatase Troponin I Serum Total Protein Albumin Globulin Albumin/Globulin Ratio 03/04/17 03/04/17 20:01 15:56 WBC RBC Hgb Hct MCV MCH MCHC RDW Plt Count MPV Immature Gran % Seg Neutrophils % Lymphocytes % Monocytes % Eosinophils % Basophils % Neutrophils # Lymphocytes # Monocytes # Eosinophils # Basophils # Platelet Estimate Anisocytosis Microcytosis Macrocytosis APTT 27.3 D ABG pH ABG pCO2 ABG pO2 ABG HCO3 ABG Total CO2 ABG O2 Saturation ABG Base Excess Blood Gas Modality Inspired O2 Sodium Potassium Chloride Carbon Dioxide BUN Creatinine Est GFR ( Amer) Est GFR (Non-Af Amer) BUN/Creatinine Ratio Glucose POC Glucose 154 H Calculated Osmolality Calcium Magnesium Total Bilirubin AST ALT Alkaline Phosphatase Troponin I Serum Total Protein Albumin Globulin Albumin/Globulin Ratio Preliminary micro results at discharge 03/04/17 15:44 Sputum Culture - Preliminary Sputum 03/03/17 00:09 Blood Culture - Preliminary Peripheral Venipuncture No growth. 03/03/17 00:09 Blood Culture - Preliminary Peripheral Venipuncture No growth. - Impressions ITS Impressions Chest X-Ray 03/02/17 22:55 IMPRESSION: 1. Endotracheal tube in good position. 2. Increased perihilar opacities and vascular congestion suggestive of pulmonary edema. 3. Persistent retrocardiac opacity, which may represent atelectasis or consolidation with possible small effusion. D/ / 03/03/2017 07:22:32 Jonas Riddle MD / taylor Interpreting Provider: Jonas Riddle MD Retroperitoneum Ultrasound 03/04/17 08:30 IMPRESSION: Normal echotexture of the kidneys bilaterally without evidence of obstruction. There is a hypoechoic mass identified within the mid to lower aspect of the left kidney, which shows good through transmission, though does not appear anechoic. This could be a minimally complex cyst. The size of this appears only minimally increased from 2015. This would best be characterized with a CT or MR per renal mass protocol. Of note, this lesion measured 3 Hounsfield units consistent with simple fluid on the previous CT examination. No obstruction or echogenic shadowing calculi. Incidental note is made of hepatic steatosis. D/ / Cam Parikh MD / Cam Parikh MD Interpreting Provider: Cam Parikh MD X-Ray 03/04/17 15:06 IMPRESSION: Enteric tube in the stomach as above. No evidence of bowel obstruction. D/ / Tha Ng MD / Tha Ng MD Interpreting Provider: Tha Ng MD X-Ray 03/04/17 15:30 IMPRESSION: Tip and side port of the enteric tube within the gastric body. D/ / Todd Gar MD / Todd Gar MD Interpreting Provider: Todd Gar MD Chest X-Ray 03/05/17 00:00 IMPRESSION: Persistent perihilar edema with bilateral effusions and atelectasis. Satisfactory position of life-support appliances. No obvious pneumothorax. D/ / Cam Holcomb MD / Cam Holcomb MD Interpreting Provider: Cam Holcomb MD X-Ray 03/05/17 08:30 IMPRESSION: Nasogastric tube side port and tip project over the proximal gastric body. D/ / 03/05/2017 10:14:49 Pavel Daniel MD / jared Interpreting Provider: Pavel Daniel MD Chest X-Ray 03/05/17 11:48 IMPRESSION: 1. Support lines and tubes are in satisfactory position. 2. Heart size is enlarged. Diffuse increased interstitial opacities may be due to pulmonary edema or multifocal pneumonia/ARDS. This has worsened from 03/02/2017. D/ / Fredi Travis MD / Fredi Travis MD Interpreting Provider: Fredi Travis MD X-Ray 03/05/17 11:48 IMPRESSION: Enteric tube has been repositioned and is coiled within the stomach. The tip and proximal side port are noted within the stomach. D/ / Sabra Daniel MD / Sabra Daniel MD Interpreting Provider: Sabra Daniel MD Date of admission: 03/02/17 22:43 Primary care physician: Molina Dewey Consults: 03/02/17 23:13 Consult to Nutrition [CONS] Routine Comment: Consulting Provider: NUTRITION Reason for Dietary Consult: TF Start and Manage 03/02/17 23:35 Consult to Cardiology [CONS] Routine Comment: Consulting Provider: Cardiology Maru Reason for Consult: NSTEMI Call Completed: Yes Consult to Critical Care [CONS] Routine Consulting Provider: [facility] [place] Reason for Consult: Critical care management Call Completed: No Discharging clinician: Louisa Brown Anticipated date of discharge: 03/05/17 - Patient Status Disposition: Transfer Critical Access Hosp Condition: Critical Functional capacity at discharge: bed bound Overall status at discharge: patient is not back to baseline - Discharge Instructions Follow Up With: Molina Dewey DO [Primary Care Provider] - - Hospital Course Hospital course: Mr. Barker is a 46 year old male admitted 3 days prior with acute respiratory failure with hypoxemia due to multiple drug overdose including benzodiazepines, Neurontin, and Suboxone. Questionable suicide. He was treated for NSTEMI with 48 hours of heparin gtt. He was extubated this morning and placed on supplemental oxygen. He subsequently became agitated and removed his supplemental oxygen and became hypoxic satting into the 70s to 80s. He went into V. fib arrest. ACLS was initiated and there was ROSC. Rapid sequence intubation was performed at this point in time. He was sedated due to trying to pull out the ET tube after intubation. Hewas started on a heparin drip due to probable cardiac component. At this point in time the family is requesting transfer to [facility]. He is stable for transfer to [facility]. - Time Spent with Patient Total time spent providing and/or coordinating discharge services: Physical Examination Vital Signs: Vital Signs, Last 4 Hours Temp Pulse Resp BP Pulse Ox 03/05/17 14:00 116 26 125/71 90 03/05/17 13:39 25 196/94 90 03/05/17 13:00 103 20 152/71 92 03/05/17 12:02 97.4 F L 03/05/17 12:00 107 03/05/17 11:55 23 147/105 76 General appearance: other (Sedation on mechanical ventilation) Eyes: nonicteric ENT: oropharynx moist Neck: supple Effort: normal Auscultation: bilateral: clear Cardiovascular: regular rate and rhythm Gastrointestinal: other (Soft, distended, hypoactive to absent bowel sounds) Integumentary: normal Extremities: no cyanosis, no edema, pink and warm, pulses normal Musculoskeletal: no deformities unable to assess due to mental status other (Sedated)
[2017-03-05 15:41] VITALS: BP 135/85
[2017-03-05] MEDS ORDERED: Vecuronium 50 MG in 0.9 % Sodium Chloride 150 ML IVC SCH (15:45)
[2017-03-05 15:46] LABS: Activated Partial Thrombo Time 26.3 Seconds (26.0-36.0); INR 1.1
[2017-03-05] MEDS ORDERED: *HR* Rocuronium Bromide 50 MG/5 ML VIAL IVC ONE (16:34)
[2017-03-05] MEDS ORDERED: *HR* Amiodarone Premix 360 MG/200 ML BAG IVC ONE (16:34)
[2017-03-05] MEDS ORDERED: *HR* Amiodarone 150 MG/3 ML VIAL IVPB ONE (16:34)
[2017-03-05] MEDS ORDERED: *HR* Magnesium Sulfate 2 GM/50 ML PIGGYBACK IVPB ONE (16:34)
[2017-03-05] MEDS ORDERED: Sennosides/Docusate Sodium TABLET PO SCH (21:00)
--- NOTE | 2017-03-07 11:13 | Electrocardiograph Report ---
[address] [place], [place] [address] Test Date: 2017-03-05 Pat Name: Guy Barker Department: 109 Room: 12 Gender: M Electrical Systems Drafter: SS : 1970 Requested By: Rupert Orr Order Number: [id number] Reading MD: Eduardo Foote MD Measurements Intervals [place] Rate: 109 P: 47 CT: 144 QRS: 9 QRSD: 110 T: 103 QT: 318 QTc: 382 Interpretive Statements SINUS TACHYCARDIA ANTEROLATERAL ISCHEMIA Electronically Signed On 03-07-2017 11:12:18 EDT by Eduardo Foote MD
== END 2017-03-05 16:35 | disposition critical access hospital (66) | DRG 917 ==
LOC: ICNU 22:43
PROVIDERS: ADMIT Internal Medicine Sleep Medicine; ATTEND Family Medicine